=== PATIENT | female | born 1970 | race Caucasian/White ===

== ENCOUNTER → 2018-05-20 | Outpatient (REF) | payer OTHER ==
[~2018-05-20] MED LIST: AMOX500T10 PO; CALC500T6 PO; CLAR-1 PO; DOCU240C4 PO; IBUP-56 PO; IBUP400T13 PO; IBUP800T37 PO; MULT-865 PO; PANT40TA65 PO; PER PO; PROM-110 PO
== END ==
LOC: ZZSTITCHES 11:26
PROVIDERS: ATTEND Physician Assistant
DX: B96.81 Helicobacter pylori [H. pylori] as the cause of diseases classified elsewhere (principal); R51 Headache; R11.10 Vomiting, unspecified
CPT/HCPCS: 82040; 82247; 82310; 82374; 82435; 82565; 82947; 84075; 84132; 84155; 84295; 84450; 84460; 84520

== ENCOUNTER 2018-05-28 11:50 | Emergency (ER) | payer OTHER ==
--- NOTE | 2018-05-28 11:56 | ER Report ---
History and Physical Time Seen By MD: 11:57 HPI/ROS CHIEF COMPLAINT: Abdominal pain HISTORY OF PRESENT ILLNESS: This is a 47-year-old female who presents to the emergency department for abdominal pain, nausea and vomiting. Patient states that she developed severe abdominal pain approximately 5 weeks ago, was diagnosed with H. pylori, started on an antibiotic regiment, finished the antibiotics approximately one week ago. Was scheduled to have and upper and lower GI with Dr. Gregory today however there was a mixup in the schedule and she is scheduled for tomorrow, the patient did fast last night. Arrives today with increased epigastric discomfort increased nausea, continues to have diarrhea. Patient appears to be very uncomfortable. No fevers. No chest pain but does have epigastric discomfort. Patient states she is exhausted, she has been dealing with nausea and vomiting and diarrhea for approximately 3 weeks no significant oral intake over the last 3 weeks as well. REVIEW OF SYSTEMS: Constitutional: No fever, no chills. Eyes: No discharge. ENT: No sore throat. Cardiovascular: No chest pain, no palpitations. Respiratory: No cough, no shortness of breath. Gastrointestinal: As above. Genitourinary: No hematuria. Musculoskeletal: No back pain. Skin: No rashes. Neurological: No headache. Allergies: Coded Allergies: morphine (Verified Allergy, Unknown, SWELLING AND ITCHING, 05/28/18) metronidazole (Verified Adverse Reaction, Intermediate, 05/28/18) Home Meds Active Scripts Pantoprazole Sodium (PANTOPRAZOLE SODIUM) 40 Mg Tablet.dr, 1 TAB PO BIDAC, #60 TAB 3 Refills Take 1 tablet, on an empty stomach, twice each day, and wait 30 minutes before eating. Prov:ZEESHAN GONSALES MD 05/27/18 Promethazine Hcl (PROMETHAZINE HCL) 25 Mg Tablet, 1 TAB PO Q8H PRN for NAUSEA/VOMITING, #10 TAB 0 Refills Prov:ZEESHAN GONSALES MD 05/27/18 Clarithromycin (CLARITHROMYCIN) 500 Mg Tablet, 1 TAB PO BID, #14 TAB 0 Refills Prov:ZEESHAN GONSALES MD 05/17/18 Amoxicillin 500 Mg Tab (AMOXICILLIN 500 MG TAB) 500 Mg Tablet, 2 TAB PO Q12H, #30 TAB 0 Refills Prov:ZEESHAN GONSALES MD 05/17/18 Reported Medications Ibuprofen (IBUPROFEN) 400 Mg Tablet, 1 TAB PO Q6H PRN for PAIN, TAB 07/30/17 Past Medical/Surgical History The patient has a past medical and surgical history of H. 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 Reviewed Nurses Notes: Yes Smoking Status: Never Smoker Constitutional Vital Sign - Last 24 Hours 05/28/18 05/28/18 05/28/18 05/28/18 11:56 11:56 12:00 12:20 Temp 97.5 Pulse 96 93 Resp 22 B/P (MAP) 132/89 132/89 (103) 118/85 (96) Pulse Ox 97 96 O2 Delivery Room Air 05/28/18 05/28/18 05/28/18 05/28/18 12:30 12:50 13:00 13:20 Pulse 83 75 B/P (MAP) 105/75 (85) 112/71 (85) Pulse Ox 96 96 05/28/18 05/28/18 05/28/18 05/28/18 13:30 13:35 14:00 14:05 Pulse 79 66 B/P (MAP) 92/61 (71) 103/72 (82) Pulse Ox 95 96 05/28/18 05/28/18 14:30 14:35 Pulse 64 B/P (MAP) 108/73 (85) Pulse Ox 96 Physical Exam General Appearance: The patient is alert, has no immediate need for airway protection and no signs of toxicity. Eyes: Pupils equal and round no pallor or injection. ENT, Mouth: Mucous membranes are moist. Respiratory: There are no retractions, lungs are clear to auscultation. Cardiovascular: Regular rate and rhythm, no murmurs, clicks or rubs. Gastrointestinal: Abdomen is soft , with tenderness to the epigastrium otherwise unremarkable. Hypoactive bowel sounds with a few tinkles. No masses, no abdominal bruits. Neurological: Alert and oriented 4. Moving all extremities. Following all commands. No focal neuro deficits. Skin: Warm and dry, no rashes. Musculoskeletal: Neck is supple non tender. Extremities are nontender, nonswollen and have full range of motion. DIFFERENTIAL DIAGNOSIS: After history and physical exam differential diagnosis was considered for abdominal pain including but not limited to appendicitis, H. pylori, cholecystitis, gastritis and urinary tract infection. Medical Decision Making Data Points Result Diagram: 05/28/18 1221 05/28/18 1221 Laboratory Hematology Test 05/28/18 12:21 05/28/18 14:56 Red Blood Count 5.63 M/uL (4.17-5.56) Mean Corpuscular Volume 84.3 fL (80.0-96.0) Mean Corpuscular Hemoglobin 29.7 pg (26.0-33.0) Mean Corpuscular Hemoglobin Concent 35.2 g/dL (32.0-36.0) Red Cell Distribution Width 12.5 % (11.5-14.5) Mean Platelet Volume 7.0 fL (7.2-11.1) Neutrophils (%) (Auto) 78.0 % (39.4-72.5) Lymphocytes (%) (Auto) 11.9 % (17.6-49.6) Monocytes (%) (Auto) 8.5 % (4.1-12.4) Eosinophils (%) (Auto) 1.0 % (0.4-6.7) Basophils (%) (Auto) 0.6 % (0.3-1.4) Nucleated RBC Relative Count (auto) 0.0 /100WBC Neutrophils # (Auto) 7.4 K/uL (2.0-7.4) Lymphocytes # (Auto) 1.1 K/uL (1.3-3.6) Monocytes # (Auto) 0.8 K/uL (0.3-1.0) Eosinophils # (Auto) 0.1 K/uL (0.0-0.5) Basophils # (Auto) 0.1 K/uL (0.0-0.1) Nucleated RBC Absolute Count (auto) 0.00 K/uL Sodium Level 133 mmol/L (137-145) Potassium Level 3.8 mmol/L (3.5-5.0) Chloride Level 96 mmol/L (98-107) Carbon Dioxide Level 23 mmol/L (22-31) Blood Urea Nitrogen 12 mg/dl (7-18) Creatinine 0.80 mg/dl (0.52-1.04) Glomerular Filtration Rate Calc > 60.0 Random Glucose 173 mg/dl (75-110) Calcium Level 9.5 mg/dl (8.4-10.2) Total Bilirubin 1.3 mg/dl (0.2-1.3) Aspartate Amino Transf (AST/SGOT) 35 U/L (0-35) Alanine Aminotransferase (ALT/SGPT) 38 U/L (0-56) Alkaline Phosphatase 140 U/L (0-126) Total Protein 7.6 g/dl (6.3-8.2) Albumin 4.8 g/dl (3.5-5.0) Lipase 166 U/L (23-300) Urine Color Yellow Urine Clarity Clear Urine pH 7.0 pH (4.8-9.5) Urine Specific Archer 1.010 Urine Protein Negative mg/dL (NEGATIVE) Urine Glucose (UA) Negative mg/dL (NEGATIVE) Urine Ketones Negative mg/dL (NEGATIVE) Urine Blood Negative (NEGATIVE) Urine Nitrite Negative (NEGATIVE) Urine Bilirubin Negative (NEGATIVE) Urine Urobilinogen Negative mg/dL (0.2-1.9) Urine Leukocyte Esterase Negative (NEGATIVE) Urine RBC None /HPF (0-2/HPF) Urine WBC 2 /HPF (0-5/HPF) Urine Squamous Epithelial Cells None /LPF (</=FEW) Urine Bacteria Negative /HPF (NONE-FEW) Urine Mucus None /HPF (NONE-FEW) Chemistry Test 05/28/18 12:21 05/28/18 14:56 White Blood Count 9.5 k/uL (4.5-11.0) Red Blood Count 5.63 M/uL (4.17-5.56) Hemoglobin 16.7 g/dL (12.0-16.0) Hematocrit 47.4 % (34.0-47.0) Mean Corpuscular Volume 84.3 fL (80.0-96.0) Mean Corpuscular Hemoglobin 29.7 pg (26.0-33.0) Mean Corpuscular Hemoglobin Concent 35.2 g/dL (32.0-36.0) Red Cell Distribution Width 12.5 % (11.5-14.5) Platelet Count 275 K/uL (150-450) Mean Platelet Volume 7.0 fL (7.2-11.1) Neutrophils (%) (Auto) 78.0 % (39.4-72.5) Lymphocytes (%) (Auto) 11.9 % (17.6-49.6) Monocytes (%) (Auto) 8.5 % (4.1-12.4) Eosinophils (%) (Auto) 1.0 % (0.4-6.7) Basophils (%) (Auto) 0.6 % (0.3-1.4) Nucleated RBC Relative Count (auto) 0.0 /100WBC Neutrophils # (Auto) 7.4 K/uL (2.0-7.4) Lymphocytes # (Auto) 1.1 K/uL (1.3-3.6) Monocytes # (Auto) 0.8 K/uL (0.3-1.0) Eosinophils # (Auto) 0.1 K/uL (0.0-0.5) Basophils # (Auto) 0.1 K/uL (0.0-0.1) Nucleated RBC Absolute Count (auto) 0.00 K/uL Glomerular Filtration Rate Calc > 60.0 Calcium Level 9.5 mg/dl (8.4-10.2) Total Bilirubin 1.3 mg/dl (0.2-1.3) Aspartate Amino Transf (AST/SGOT) 35 U/L (0-35) Alanine Aminotransferase (ALT/SGPT) 38 U/L (0-56) Alkaline Phosphatase 140 U/L (0-126) Total Protein 7.6 g/dl (6.3-8.2) Albumin 4.8 g/dl (3.5-5.0) Lipase 166 U/L (23-300) Urine Color Yellow Urine Clarity Clear Urine pH 7.0 pH (4.8-9.5) Urine Specific Archer 1.010 Urine Protein Negative mg/dL (NEGATIVE) Urine Glucose (UA) Negative mg/dL (NEGATIVE) Urine Ketones Negative mg/dL (NEGATIVE) Urine Blood Negative (NEGATIVE) Urine Nitrite Negative (NEGATIVE) Urine Bilirubin Negative (NEGATIVE) Urine Urobilinogen Negative mg/dL (0.2-1.9) Urine Leukocyte Esterase Negative (NEGATIVE) Urine RBC None /HPF (0-2/HPF) Urine WBC 2 /HPF (0-5/HPF) Urine Squamous Epithelial Cells None /LPF (</=FEW) Urine Bacteria Negative /HPF (NONE-FEW) Urine Mucus None /HPF (NONE-FEW) Urinalysis Test 05/28/18 14:56 Urine Color Yellow Urine Clarity Clear Urine pH 7.0 pH (4.8-9.5) Urine Specific Archer 1.010 Urine Protein Negative mg/dL (NEGATIVE) Urine Glucose (UA) Negative mg/dL (NEGATIVE) Urine Ketones Negative mg/dL (NEGATIVE) Urine Blood Negative (NEGATIVE) Urine Nitrite Negative (NEGATIVE) Urine Bilirubin Negative (NEGATIVE) Urine Urobilinogen Negative mg/dL (0.2-1.9) Urine Leukocyte Esterase Negative (NEGATIVE) Urine RBC None /HPF (0-2/HPF) Urine WBC 2 /HPF (0-5/HPF) Urine Squamous Epithelial Cells None /LPF (</=FEW) Urine Bacteria Negative /HPF (NONE-FEW) Urine Mucus None /HPF (NONE-FEW) ED Course/Re-evaluation Clinical Indication for ER IV: Hydration, IV Access ED Course The patient was admitted to room. A history of physical obtained. Fresh diagnoses were considered. An IV was started. 1 L normal saline bolus was given 2. 4 mg IV Zofran 2. 1 GI cocktail. A CBC, CMP and lipase were obtained. CBC showing hemoconcentration which is likely from the continuation of vomiting and diarrhea. Blood sugar 173. Lipase normal. Patient is resting comfortably now. Unable to obtain stool samples for C. difficile. Patient was sent home with a prescription for stool collection results to Dr. Gregory she will be following up with Dr. Gregory for the upper and lower GI studies. The patient had no other questions or concerns at this time and was discharged home. Decision to Disposition Date: May 28, 2018 Decision to Disposition Time: 14:52 Depart Departure Latest Vital Signs Vital Signs Date Time Temp Pulse Resp B/P (MAP) Pulse Ox O2 Delivery O2 Flow Rate FiO2 05/28/18 14:35 64 96 05/28/18 14:30 108/73 (85) 05/28/18 11:56 97.5 22 Room Air Impression: Primary Impression: Nausea and vomiting Additional Impressions: Epigastric abdominal pain Diarrhea Condition: Improved Disposition: HOME OR SELF-CARE Referrals: JAIMIE MENDOZA MD (PCP) Patient Instructions: Abdominal Pain (ED), Acute Diarrhea (ED), Acute Nausea and Vomiting (ED) Additional Instructions: Continue with the recommendations for procedure prep re: upper and lower endoscopy tomorrow. If you can have fluids today, try sips to start then progress. Take the medications as prescribed. Return to the ED for any other concerns or worsening symptoms. Problem Qualifiers Primary Impression: Nausea and vomiting Vomiting type: unspecified Vomiting Intractability: non-intractable Qualified Codes: R11.2 - Nausea with vomiting, unspecified Additional Impressions: Diarrhea Diarrhea type: unspecified type Qualified Codes: R19.7 - Diarrhea, unspecified DARREN GILLIAM [employer] May 28, 2018 11:56
[2018-05-28] MEDS ORDERED: NS(*) 0.9% 1000 ML BAG 1,000 ML IV ONE ×2 (12:13→13:35)
[2018-05-28] MEDS ORDERED: MAG HYD/AL HYD/SIMETH 30ML UDC PO ONE (12:15)
[2018-05-28] MEDS ORDERED: LIDOCAINE 2% VISC SLN 15ML UDC PO ONE (12:15)
[2018-05-28] MEDS ORDERED: ATRO/SCOPOL/HYOSCY/PB 5 ML ELX PO ONE (12:15)
[2018-05-28] MEDS ORDERED: ONDANSETRON 4 MG/2 ML VIAL IVP ONE ×2 (12:15→14:45)
[2018-05-28 12:29] LABS: PLATELET COUNT, AUTOMATED 275 K/uL (150-450)
[2018-05-28 14:30] VITALS: BP 108/73
[2018-05-29] MEDS ORDERED: GOLYTE PO (17:24)
[2018-05-29] MEDS ORDERED: ONDA4TAB PO (18:27)
== END 2018-05-28 15:18 | disposition home or self-care (01) ==
LOC: ER 12:00
DX: R10.13 Epigastric pain (principal); R11.2 Nausea with vomiting, unspecified; R19.7 Diarrhea, unspecified
CPT/HCPCS: 81001; 83690; 85025; 96361; 96374; 96376; 99284; J2405; J7030; 82040; 82247; 82310; 82374; 82435; 82565; 82947; 84075; 84132; 84155; 84295; 84450; 84460; 84520

== ENCOUNTER 2018-05-29 00:55 | Outpatient (RCR) | payer OTHER ==
[2018-05-29] MEDS ORDERED: BARIUM SULFATE 340 GM POWD ONE (08:59)
[2018-05-29] MEDS ORDERED: BARIUM SULFATE 176 GM BTL PO ONE (08:59)
[2018-05-29] MEDS ORDERED: GOLYTE PO (17:24)
[2018-05-29] MEDS ORDERED: ONDA4TAB PO (18:27)
[2018-05-31] MEDS ORDERED: ONDA4TAB PO (08:59)
[2018-06-07] MEDS ORDERED: DICY20TA70 PO (14:46)
== END 2018-05-29 18:00 | disposition home or self-care (01) ==
LOC: RAD 00:55 → EDSTATUS 13:27 → RAD 18:00
PROVIDERS: ATTEND Surgery
DX: Z02.9 Encounter for administrative examinations, unspecified (principal)

== ENCOUNTER 2018-05-30 00:49 | Day surgery (SDC) | payer OTHER ==
[2018-05-30] VITALS (8 sets, daily range): BP systolic 104–132; BP diastolic 62–92
[~2018-05-30] VITALS: Ht 180.3 cm; Wt 72.1 kg
[~2018-05-30 00:49] MED LIST changes: +GOLYTE PO; +ONDA4TAB PO
[2018-05-30] MEDS ORDERED: LIDOCAINE MPF 1% 5 ML VIAL ONE (10:50)
[2018-05-30] MEDS ORDERED: PROPOFOL EMUL(*) 10MG/ML 20 ML 60 ML ONE (10:50)
[2018-05-30] MEDS ORDERED: LIDOCAINE/SOD BICARB 8.4% SYR ID ONE (11:00)
[2018-05-30] MEDS ORDERED: NORMOSOL R SOLN(*) 1000 ML BAG 1,000 ML IV PRN (11:00)
[2018-05-30] MEDS ORDERED: NORMOSOL R SOLN(*) 1000 ML BAG 1,000 ML IV ONE (11:00)
[2018-05-30] MEDS ORDERED: GLYCOPYRROLATE 0.2MG/ML 1 ML INJ IVP ONE (11:50)
[2018-05-30] MEDS ORDERED: PROPOFOL EMUL(*) 10MG/ML 20 ML 20 ML ONE (13:20)
--- NOTE | 2018-05-30 13:47 | Short(Outpt) Discharge Summary ---
Discharge Summary Reason for Hosp/Final Diag: (1) Diarrhea Status: Chronic Hospital Course & Plan: EGD with biopsies and colonoscopy with biopsies completed without any problems. (2) Epigastric abdominal pain Status: Chronic (3) Nausea and vomiting Status: Chronic (4) H. pylori infection Status: Chronic Departure Discharge to: Home, Self Care Discharge Instructions Home Meds Active Scripts Peg/Electrolytes (GOLYTELY SOLUTION) 4,000 Ml Soln, 1 GAL PO ONCE, #1 GAL 0 Refills Prov:ZEESHAN GONSALES MD 05/29/18 Pantoprazole Sodium (PANTOPRAZOLE SODIUM) 40 Mg Tablet.dr, 1 TAB PO BIDAC, #60 TAB 3 Refills Take 1 tablet, on an empty stomach, twice each day, and wait 30 minutes before eating. Prov:ZEESHAN GONSALES MD 05/27/18 Reported Medications Ondansetron (ZOFRAN ODT) 4 Mg Tab.rapdis, 4 MG PO Q12H PRN for NAUSEA, TAB.MOOSE 05/29/18 Discontinued Reported Medications Ibuprofen (IBUPROFEN) 400 Mg Tablet, 1 TAB PO Q6H PRN for PAIN, TAB 07/30/17 Discontinued Scripts Promethazine Hcl (PROMETHAZINE HCL) 25 Mg Tablet, 1 TAB PO Q8H PRN for NAUSEA/VOMITING, #10 TAB 0 Refills Prov:ZEESHAN GONSALES MD 05/27/18 Clarithromycin (CLARITHROMYCIN) 500 Mg Tablet, 1 TAB PO BID, #14 TAB 0 Refills Prov:ZEESHAN GONSALES MD 05/17/18 Amoxicillin 500 Mg Tab (AMOXICILLIN 500 MG TAB) 500 Mg Tablet, 2 TAB PO Q12H, #30 TAB 0 Refills Prov:ZEESHAN GONSALES MD 05/17/18 Follow up Referrals: General Surgery - 05/31/18 @ Surgery, General with ZEESHAN GONSALES MD You have a follow up appointment scheduled with Dr. Gonsales on 05/31/18, at 2:00pm. Diet: Regular Activity: As Tolerated Special Instructions: Your upper endoscopy and colonoscopy were both completed without problems. There was still quite a bit of barium throughout your colon but I did get a good look at everything to be able to determine that there's no inflammation, cancer, ulcers, signs of ulcerative colitis, or Crohn's disease. I took biopsies from your stomach, duodenum, terminal ileum, and colon and one of the biopsies will look for continued H. pylori infection. Continue taking the pantoprazole, 40mg tablets twice each day on an empty stomach and wait 30 minutes before eating and grind 1 carafate (sucralfate) tablet in some water and drink this four times each day. You can also take maalox, mylanta, tums, or other antacids of your choice if it helps your pain and/or nausea. Get the head CT and abdomen/pelvis CT scheduled for tomorrow morning and I'll see you back in my office tomorrow afternoon at 2:00pm to go over all results with you. The only results I won't have back by then are the biopsy results. We'll also order stool studies at that time as well and we'll see how your symptoms are doing on pantoprazole and liquid carafate and what changes we need to make to help you feel better. Problem Qualifiers (1) Diarrhea: Diarrhea type: unspecified type Qualified Codes: R19.7 - Diarrhea, unspecified (2) Nausea and vomiting: Vomiting type: unspecified Vomiting Intractability: unspecified Qualified Codes: R11.2 - Nausea with vomiting, unspecified ZEESHAN GONSALES MD May 30, 2018 13:47
[2018-05-31] MEDS ORDERED: ONDA4TAB PO (08:59)
== END 2018-05-30 14:58 | disposition home or self-care (01) ==
LOC: OR 00:49
PROVIDERS: ATTEND Surgery
DX: R19.7 Diarrhea, unspecified (principal); R10.9 Unspecified abdominal pain; R10.13 Epigastric pain; R11.2 Nausea with vomiting, unspecified
CPT/HCPCS: 00811; 36415; 43239; 45380; 83516; 83690; 85651; 86140; 87077; 88305; J2001; J2704; J3490

== ENCOUNTER 2018-06-06 01:29 | Outpatient (RCR) | payer OTHER ==
[2018-06-07] MEDS ORDERED: DICY20TA70 PO (14:46)
== END 2018-06-06 18:00 | disposition home or self-care (01) ==
LOC: CT 01:29 → EDSTATUS 13:47 → CT 18:00
PROVIDERS: ATTEND Surgery
DX: Z02.9 Encounter for administrative examinations, unspecified (principal)

== ENCOUNTER → 2018-06-07 | Outpatient (REF) | payer OTHER ==
[~2018-06-07] MED LIST changes: +DICY20TA70 PO; +OXYC-823 PO; +PROC10TA4; +VANC125C3 PO; +VANC250C3 PO
== END ==
LOC: ZZSENDIN 17:38
PROVIDERS: ATTEND Surgery
DX: Z02.9 Encounter for administrative examinations, unspecified (principal)

== ENCOUNTER 2018-06-13 20:52 | Inpatient (IN) | payer OTHER ==
[~2018-06-13] VITALS: Ht 180.3 cm; Wt 74.4 kg
[~2018-06-13 20:52] MED LIST changes: -OXYC-823 PO; -PROC10TA4; -VANC125C3 PO; -VANC250C3 PO
--- NOTE | 2018-06-13 20:54 | ER Report ---
History and Physical Time Seen By MD: 20:54 HPI/ROS CHIEF COMPLAINT: Nausea, vomiting, diffuse abdominal pain, dehydration, failure to thrive HISTORY OF PRESENT ILLNESS: Patient is a 47-year-old female here with complaints of diffuse abdominal pain, nausea, vomiting in the setting of metastatic melanoma. Patient reportedly was admitted to [facility] on Sunday for worsening abdominal pain and was diagnosed with melanoma at that time of the spleen, liver and lung. Patient was discharged yesterday afternoon and was doing well until this afternoon when she was unable to keep down her pain medications, vancomycin which she has been taking for C. difficile, Compazine. Patient has had recurrent vomiting, abdominal pain which seems to be worsening. She is opiate avni until this admission and likely has some component of constipation. She does have a lidocaine patch on her epigastric region for topical relief of pain. Patient is afebrile, hemodynamically stable at time of evaluation. Patient is alert and oriented, in moderate distress secondary to pain. Last full meal was at lunch time. REVIEW OF SYSTEMS: Constitutional: No fever, no chills. Eyes: No discharge. ENT: No sore throat. Cardiovascular: No chest pain, no palpitations. Respiratory: No cough, no shortness of breath. Gastrointestinal: + diffuse abdominal pain, worse in the epigastric distribution, + nausea and vomiting. Genitourinary: No hematuria. Musculoskeletal: No back pain. Skin: No rashes. Neurological: No headache. Allergies: Coded Allergies: morphine (Verified Allergy, Unknown, SWELLING AND ITCHING, 06/13/18) metronidazole (Verified Adverse Reaction, Intermediate, 06/13/18) Home Meds Active Scripts Dicyclomine Hcl (DICYCLOMINE HCL) 20 Mg Tablet, 1 TAB PO QID, #60 TAB 0 Refills Prov:ZEESHAN GONSALES MD 06/07/18 Ondansetron (ZOFRAN ODT) 4 Mg Tab.rapdis, 1 TAB PO TID PRN for NAUSEA, #20 TAB.MOOSE 3 Refills Prov:ZEESHAN GONSALES MD 05/31/18 Reported Medications Prochlorperazine Maleate (Compazine) 10 Mg Tablet 06/13/18 Vancomycin Hcl (VANCOMYCIN HCL) 250 Mg Capsule, 250 MG PO, CAPSULE 06/13/18 Oxycodone Hcl (OXYCONTIN) 10 Mg Tab.er.12h, 5 MG PO Q4-6H, TAB 06/13/18 Discontinued Scripts Pantoprazole Sodium (PANTOPRAZOLE SODIUM) 40 Mg Tablet.dr, 1 TAB PO BIDAC, #60 TAB 3 Refills Take 1 tablet, on an empty stomach, twice each day, and wait 30 minutes before eating. Prov:ZEESHAN GONSALES MD 05/27/18 Hx Smoking: Yes Smoking Status: Former Smoker, Light Tobacco Smoker Hx Substance Use Disorder: No Hx Alcohol Use: No Constitutional Vital Sign - Last 24 Hours 06/13/18 06/13/18 06/13/18 06/13/18 20:56 20:57 21:00 21:07 Temp 98.8 Pulse 76 75 Resp 16 B/P (MAP) 120/69 (86) 120/69 126/85 (99) Pulse Ox 95 95 O2 Delivery Room Air 06/13/18 06/13/18 06/13/18 06/13/18 21:22 21:30 21:37 21:42 Pulse 71 71 70 B/P (MAP) 130/91 (104) Pulse Ox 94 91 93 06/13/18 06/13/18 06/13/18 06/13/18 21:52 21:57 22:00 22:12 Pulse 65 70 B/P (MAP) 125/78 (94) Pulse Ox 97 97 O2 Flow Rate 2.0 Physical Exam General Appearance: The patient is alert, has no immediate need for airway protection and no signs of toxicity. Moderate distress secondary to pain Eyes: Pupils equal and round no pallor or injection. ENT, Mouth: Mucous membranes are dry Respiratory: There are no retractions, lungs are clear to auscultation. Cardiovascular: Regular rate and rhythm. Gastrointestinal: Abdomen is soft and diffusely tender on palpation, no masses, bowel sounds normal. Neurological: No focal neurological deficits on exam Skin: Warm and dry, no rashes. Musculoskeletal: Neck is supple non tender. Extremities are nontender, nonswollen and have full range of motion. DIFFERENTIAL DIAGNOSIS: After history and physical exam differential diagnosis was considered for abdominal pain including but not limited to bowel obstruction, malignancy, gastritis and urinary tract infection, constipation, peptic ulcer disease. Medical Decision Making Data Points Result Diagram: 06/13/18212406/13/182124 Laboratory Hematology Test 06/13/18 21:25 Red Blood Count 5.38 M/uL (4.17-5.56) Mean Corpuscular Volume 83.2 fL (80.0-96.0) Mean Corpuscular Hemoglobin 29.6 pg (26.0-33.0) Mean Corpuscular Hemoglobin Concent 35.6 g/dL (32.0-36.0) Red Cell Distribution Width 12.8 % (11.5-14.5) Mean Platelet Volume 7.0 fL (7.2-11.1) Neutrophils (%) (Auto) 80.6 % (39.4-72.5) Lymphocytes (%) (Auto) 8.6 % (17.6-49.6) Monocytes (%) (Auto) 9.5 % (4.1-12.4) Eosinophils (%) (Auto) 0.7 % (0.4-6.7) Basophils (%) (Auto) 0.6 % (0.3-1.4) Nucleated RBC Relative Count (auto) 0.0 /100WBC Neutrophils # (Auto) 6.9 K/uL (2.0-7.4) Lymphocytes # (Auto) 0.7 K/uL (1.3-3.6) Monocytes # (Auto) 0.8 K/uL (0.3-1.0) Eosinophils # (Auto) 0.1 K/uL (0.0-0.5) Basophils # (Auto) 0.1 K/uL (0.0-0.1) Nucleated RBC Absolute Count (auto) 0.00 K/uL Prothrombin Time 12.8 seconds (12.0-14.4) Prothromb Time International Ratio 0.97 Activated Partial Thromboplast Time 28 seconds (23-35) Sodium Level 132 mmol/L (137-145) Potassium Level 4.2 mmol/L (3.5-5.0) Chloride Level 91 mmol/L (98-107) Carbon Dioxide Level 31 mmol/L (22-31) Blood Urea Nitrogen 7 mg/dl (7-18) Creatinine 0.80 mg/dl (0.52-1.04) Glomerular Filtration Rate Calc > 60.0 Random Glucose 122 mg/dl (75-110) Lactate 1.9 mmol/L (0.7-2.1) Calcium Level 9.6 mg/dl (8.4-10.2) Total Bilirubin 1.4 mg/dl (0.2-1.3) Aspartate Amino Transf (AST/SGOT) 85 U/L (0-35) Alanine Aminotransferase (ALT/SGPT) 96 U/L (0-56) Alkaline Phosphatase 238 U/L (0-126) C-Reactive Protein 1.3 mg/dl (<1.0) Total Protein 7.2 g/dl (6.3-8.2) Albumin 4.2 g/dl (3.5-5.0) Lipase 55 U/L (23-300) Human Chorionic Gonadotropin, Qual Negative (NEGATIVE) Chemistry Test 06/13/18 21:25 White Blood Count 8.6 k/uL (4.5-11.0) Red Blood Count 5.38 M/uL (4.17-5.56) Hemoglobin 15.9 g/dL (12.0-16.0) Hematocrit 44.7 % (34.0-47.0) Mean Corpuscular Volume 83.2 fL (80.0-96.0) Mean Corpuscular Hemoglobin 29.6 pg (26.0-33.0) Mean Corpuscular Hemoglobin Concent 35.6 g/dL (32.0-36.0) Red Cell Distribution Width 12.8 % (11.5-14.5) Platelet Count 232 K/uL (150-450) Mean Platelet Volume 7.0 fL (7.2-11.1) Neutrophils (%) (Auto) 80.6 % (39.4-72.5) Lymphocytes (%) (Auto) 8.6 % (17.6-49.6) Monocytes (%) (Auto) 9.5 % (4.1-12.4) Eosinophils (%) (Auto) 0.7 % (0.4-6.7) Basophils (%) (Auto) 0.6 % (0.3-1.4) Nucleated RBC Relative Count (auto) 0.0 /100WBC Neutrophils # (Auto) 6.9 K/uL (2.0-7.4) Lymphocytes # (Auto) 0.7 K/uL (1.3-3.6) Monocytes # (Auto) 0.8 K/uL (0.3-1.0) Eosinophils # (Auto) 0.1 K/uL (0.0-0.5) Basophils # (Auto) 0.1 K/uL (0.0-0.1) Nucleated RBC Absolute Count (auto) 0.00 K/uL Prothrombin Time 12.8 seconds (12.0-14.4) Prothromb Time International Ratio 0.97 Activated Partial Thromboplast Time 28 seconds (23-35) Glomerular Filtration Rate Calc > 60.0 Lactate 1.9 mmol/L (0.7-2.1) Calcium Level 9.6 mg/dl (8.4-10.2) Total Bilirubin 1.4 mg/dl (0.2-1.3) Aspartate Amino Transf (AST/SGOT) 85 U/L (0-35) Alanine Aminotransferase (ALT/SGPT) 96 U/L (0-56) Alkaline Phosphatase 238 U/L (0-126) C-Reactive Protein 1.3 mg/dl (<1.0) Total Protein 7.2 g/dl (6.3-8.2) Albumin 4.2 g/dl (3.5-5.0) Lipase 55 U/L (23-300) Human Chorionic Gonadotropin, Qual Negative (NEGATIVE) Coagulation Test 06/13/18 21:25 Prothrombin Time 12.8 seconds Prothromb Time International Ratio 0.97 Activated Partial Thromboplast Time 28 seconds ER Point of Care Test Results ER Point of Care Test Results 12 lead EKG: Normal sinus rhythm, ventricular rate 69, QTc interval 447, no ischemic changes or ST abnormalities Rhythm: normal sinus rhythm [place]: normal QRS: normal ST segments: normal EKG/Imaging Monitor Interpretation: Normal Sinus Rhythm Imaging X-ray showed no acute obstructive pattern. Please see official radiology report for further details. ED Course/Re-evaluation Clinical Indication for ER IV: Hydration, IV Access ED Course Patient is a 47-year-old female here with complaints of abdominal pain, nausea, vomiting, failure to thrive in the setting of metastatic melanoma to the spleen, liver, lungs diagnosed on her last admission to [facility] from what she was discharged yesterday afternoon. Patient reports worsening abdominal pain and unable to tolerate oral intake starting this afternoon with intractable nausea, vomiting, dehydration. Patient reports being unable to hold down her home pain medications , vancomycin which she is taking for her C. difficile. Patient reportedly is on day 6 of 10 of vancomycin therapy for her Clostridium difficile treatment. Patient is afebrile time of evaluation, hemodynamically stable. Patient was given a liter bolus of fluids, Dilaudid, Zofran for symptom management. KUB was completed to evaluate for bowel extraction. EKG showed QT interval of 447, no ischemic changes are present. Patient was noted to have a transaminitis with an elevated alkaline phosphatase. I discussed the patient with Dr. Anat Gabriel who is the on-call hospitalist who accepted the patient to his service. Patient was stable at time of admission. Decision to Disposition Date: Jun 13, 2018 Decision to Disposition Time: 22:11 Depart Departure Latest Vital Signs Vital Signs Date Time Temp Pulse Resp B/P (MAP) Pulse Ox O2 Delivery O2 Flow Rate FiO2 06/13/18 22:12 70 97 06/13/18 22:00 125/78 (94) 06/13/18 21:52 2.0 06/13/18 20:57 98.8 16 Room Air Impression: Primary Impression: Nausea and vomiting Additional Impressions: Epigastric abdominal pain Dehydration Condition: Improved Disposition: HOME OR SELF-CARE Referrals: JAIMIE MENDOZA MD (PCP) Problem Qualifiers MERCEDES MORRIS DO Jun 13, 2018 20:54
[2018-06-13] MEDS ORDERED: OXYC-823 PO (21:00)
[2018-06-13] MEDS ORDERED: VANC250C3 PO (21:01)
[2018-06-13] MEDS ORDERED: PROC10TA4 (21:02)
[2018-06-13] MEDS ORDERED: NS(*) 0.9% 1000 ML BAG 1,000 ML IV ONE (21:13)
[2018-06-13] MEDS ORDERED: ONDANSETRON 4 MG/2 ML VIAL IVP ONE (21:15)
[2018-06-13] MEDS ORDERED: HYDROMORPHONE HCL 1 MG/ML SYRINGE IVP ONE (21:15)
[2018-06-13 21:34] LABS: PLATELET COUNT, AUTOMATED 232 K/uL (150-450)
[2018-06-13 21:43] LABS: INR 0.97
--- NOTE | 2018-06-13 21:47 | EKG ---
FACILITY: [facility] - [place], [place] PATIENT NAME: GONZALO CABELLO : [id number] MR: [id number] V: [id number] EXAM DATE: ORDERING PHYSICIAN: MERCEDES MORRIS TECHNOLOGIST: HOWIE Barraza Reason : Blood Pressure : / mmHG Vent. Rate : 069 BPM Atrial Rate : 069 BPM P-R Int : 148 ms QRS Dur : 086 ms QT Int : 418 ms P-R-T Axes : 061 090 069 degrees QTc Int : 447 ms Normal sinus rhythm Rightward axis Borderline ECG No previous ECGs available Confirmed by Toby Wilson [id number] on 06/13/2018 11:56:29 PM Referred By: Confirmed By:Toby Gabriel
[2018-06-13 22:25] VITALS: BP 110/78
--- NOTE | 2018-06-13 23:12 | RADIOLOGY IMAGING REPORT ---
FACILITY: [facility] - [place] PATIENT NAME: Anny Yeboah : 1970 MR: [id number] V: [id number] EXAM DATE: ORDERING PHYSICIAN: MERCEDES MORRIS TECHNOLOGIST: Location: [facility] - [place] Patient: Anny Yeboah : 1970 Visit/Account:[id number] Date of Sevice: 06/13/2018 Abdomen: Indication: Abdominal distention and nausea. Technique: 2 supine views of the abdomen were obtained. Comparison: None. Findings: There is a moderate amount of stool in the colon. There are no signs of obstruction or foca l dilatation. No suspicious calcifications are identified. There are postoperative changes in the low er lumbar spine. No acute skeletal deformity is identified. IMPRESSION: There is a moderate amount of stool in the colon. There is no evidence of obstruction or focal dilatation. Report Dictated By: Marshall Miller MD at 06/13/2018 11:05 PM Report E-Signed By: Marshall Miller MD at 06/13/2018 11:07 PM WSN:[id number]
[2018-06-13] MEDS ORDERED: FLUSH 10 ML SYR IVP PRN (23:55)
[2018-06-13] MEDS ORDERED: INFLUENZA VIRUS VAC 0.5 ML SYR IM ONLY ONE (23:55)
--- NOTE | 2018-06-14 00:16 | History & Physical ---
History of Present Illness Chief Complaint nausea/vomiting, abdominal pain History of Present Illness 47F recently diagnosed with metastatic melanoma presented with one day Hx intractable n/v. DIscharged form [facility] after pain and n/v led her to seek help and was diagnosed with metastatic melanoma with involvement of the liver and spleen. Was tolerating PO prior to discharge and was doing ok until noon or so today, began vomiting and unable to stop. She also had cdiff diagnossed while inpatient and has completed 6 days vancomycin for it. History Problems: (1) Epigastric abdominal pain Status: Chronic (2) Nausea and vomiting Status: Chronic Home Meds Active Scripts Ondansetron (ZOFRAN ODT) 4 Mg Tab.rapdis, 1 TAB PO TID PRN for NAUSEA, #20 TAB.MOOSE 3 Refills Prov:ZEESHAN GONSALES MD 05/31/18 Reported Medications Prochlorperazine Maleate (Compazine) 10 Mg Tablet 06/13/18 Vancomycin Hcl (VANCOMYCIN HCL) 250 Mg Capsule, 250 MG PO QID, CAPSULE 06/13/18 Oxycodone Hcl (OXYCONTIN) 10 Mg Tab.er.12h, 5 MG PO Q4-6H, TAB 06/13/18 Discontinued Scripts Dicyclomine Hcl (DICYCLOMINE HCL) 20 Mg Tablet, 1 TAB PO QID, #60 TAB 0 Refills Prov:ZEESHAN GONSALES MD 06/07/18 Pantoprazole Sodium (PANTOPRAZOLE SODIUM) 40 Mg Tablet.dr, 1 TAB PO BIDAC, #60 TAB 3 Refills Take 1 tablet, on an empty stomach, twice each day, and wait 30 minutes before eating. Prov:ZEESHAN GONSALES MD 05/27/18 Allergies: Coded Allergies: morphine (Verified Allergy, Unknown, SWELLING AND ITCHING, 06/13/18) metronidazole (Verified Adverse Reaction, Intermediate, 06/13/18) Patient History: FH: CHF (congestive heart failure) FATHER FH: hypertension FATHER Hx Smoking: Yes Smoking Status: Former Smoker When Quit Tobacco?: 20 years ago Caffeine Intake: Tea Caffeine/Cups Per Day: 2/WEEK Hx Alcohol Use: Yes When Quit Alcohol?: 20 years ago Hx Substance Use Disorder: No Social Drug Use: Never Review of Systems All Systems Reviewed/Normal: Yes, Except as Noted Gastrointestinal: Nausea, Vomiting, Abdominal Pain Exam Vital Signs Vital Signs Date Time Temp Pulse Resp B/P (MAP) Pulse Ox O2 Delivery O2 Flow Rate FiO2 06/13/18 22:36 98 Nasal Cannula 0.5 06/13/18 22:25 97.9 74 16 110/78 (89) General Appearance: Alert, Awake, No Acute Distress Neuro: No Gross deficits Eyes: PERRLA ENT: Normal Neck: No Masses Cardiovascular: Normal Rhythm & Peripheral Pulses Respiratory: No Respiratory Distress GI: Other (abdominal tenderness) Musculoskeletal: No Weakness/Pain Extremities: Soft and Non Tender, Warm, Pulses, Perfused; No Edema Integumentary: Skin Intact without Lesion / Mass Psych: Alert & Oriented X3 Medical Decision Making Data Points Result Diagram: 06/13/18212406/13/182124 Assessment and Plan Problems: (1) Nausea and vomiting Status: Chronic Assessment & Plan: Worsening of chronic n/v. Will continue Compazine, IV Zofran. Ativan at bedtime PRN. Will need robust PO regimen to allow her to avoid hospitalization. IV NS at 100cc/hr. (2) Metastatic malignant melanoma Assessment & Plan: She is to begin treatment with [facility]. She is established with Dr Fernandez. (3) C. difficile colitis Assessment & Plan: No further diarrhea, completed 6 days PO vancomycin at admission. Continue Abx. (4) Epigastric abdominal pain Status: Chronic Assessment & Plan: Secondary to metastasis of melanoma to liver, spleen. Venous Thromboembolism Antithrombotics Is Pt On Any Antithrombotics?: Yes Exam Sepsis Risk: No Definite Risk ALIZE PETERS DO Jun 14, 2018 00:16
[2018-06-14] MEDS: ONDANSETRON 4 MG/2 ML VIAL IVP PRN ×5 (00:31→18:47)
[2018-06-14 01:56] VITALS: BP 113/68
[2018-06-14] MEDS: NS(*) 0.9% 1000 ML BAG 1,000 ML IV PRN ×3 (02:03→23:35)
[2018-06-14] MEDS: ACETAMINOPHEN 325 MG TAB PO PRN (05:01)
[2018-06-14] MEDS ORDERED: LORazepam 2 MG/ML VIAL IVP PRN (06:40)
[2018-06-14] MEDS ORDERED: HYDROmorphone HCL 2 MG/ML SDV IVP PRN (06:40)
[2018-06-14] MEDS ORDERED: oxyCODONE HCL 5 MG CAP PO PRN (06:40)
[2018-06-14] MEDS: PROCHLORPERAZINE MAL 5 MG TAB PO PRN ×4 (07:20→20:15)
[2018-06-14] MEDS: DOCUSATE SODIUM 100 MG CAP PO SCH ×2 (08:26→20:17)
[2018-06-14] MEDS: ENOXAPARIN 40 MG/0.4ML SYR SC SCH (08:28)
[2018-06-14 08:30] VITALS: BP 99/54; Ht 180.3 cm; Wt 74.4 kg
[2018-06-14] MEDS ORDERED: BISACODYL 10 MG SUPP PR ONE (08:55)
[2018-06-14] MEDS: VANCOMYCIN HCL 125 MG CAPSULE PO SCH ×4 (08:57→20:15)
[2018-06-14] MEDS ORDERED: VANCOMYCIN HCL 125 MG CAPSULE PO SCH (09:00)
[2018-06-14] MEDS ORDERED: POLYETHYLENE GLYCOL 17 GM PKT PO SCH (09:00)
--- NOTE | 2018-06-14 09:01 | Hospitalist Progress Note ---
Subjective Progress Notes Subjective She reports some improvement in the nausea and pain. She is constipated. Physical Exam Vital Signs Date Time Temp Pulse Resp B/P (MAP) Pulse Ox O2 Delivery O2 Flow Rate FiO2 06/14/18 03:20 92 06/14/18 01:56 98.1 62 18 113/68 (83) Room Air 06/14/18 01:47 0.5 Intake and Output 06/14/18 07:00 Intake Total 1000 ml Balance 1000 ml Intake IV Total 1000 ml # Voids 2 General Appearance: Alert, Awake Cardiovascular: Regular Rate and Rhythm Respiratory: Clear to Auscultation GI: Other (soft with some tenderness reported over both upper quadrants/BS present) Result Diagram: 06/13/18212406/14/18 0536 Monitor Interpretation: Normal Sinus Rhythm Assessment and Plan Problems: (1) Nausea and vomiting Status: Chronic Assessment & Plan: Will continue Compazine. She has not tolerated the Zofran as well (headache and possibly constipation). Will continue Ativan prn as well. Will continue IV fluids. (2) Metastatic malignant melanoma Assessment & Plan: She is to begin treatment with Cancer Center. She is established with Dr Fernandez. (3) C. difficile colitis Assessment & Plan: No further diarrhea. Will complete a full course of PO vancomycin (currently on day 7). (4) Epigastric abdominal pain Status: Chronic Assessment & Plan: Secondary to metastatic lesions to liver, spleen. She is on oxycodone, which can certainly complicate her nausea as well as constipation. Will have her on a bowel regimen as well. Exam Sepsis Risk: No Definite Risk TOREY LAZARO MD Jun 14, 2018 09:01
[2018-06-14 10:49] VITALS: BP 119/73
[2018-06-14] MEDS ORDERED: VANC125C3 PO (11:58)
[2018-06-14] MEDS: oxyCODONE HCL 5 MG CAP PO PRN ×4 (12:27→20:22)
--- NOTE | 2018-06-14 12:56 | Medical Nutrition Therapy ---
Nutrition Anthropometrics Height (Inches): 71.00 Height (Calculated Centimeters: 180.826000 Weight (Pounds): 164 Weight (Calculated Kilograms): 74.389 BMI: 22.9 Jax Nutrition Score: Probably Inadequate Jax Nutrition Risk Score: 20 Dietary Referral Nutrition Risk Factors: Unplanned Loss >10lbs, Recent Nutrition Impact Nutrition Risk Comment: nausea and vomiting Physical Findings Physical Appearance: Skin Appearance Skin Appearance: Edema Edema Location Modifier: Edema Location: Type of Edema: Degree of Edema: Gastrointestinal Symptoms GI Symtoms: Nausea Tube Present: Bowel Sounds: Recent Bowel Pattern: Stool Characteristics: Nutritional Diagnosis Nutritional Risk Acuity 2: V/D > 3 Days Nutritional Risk Acuity 3: Nausea, Weight Loss, Cancer Past Medical History: Hx og epigastric pain and N/V Nutritional Acuity: 2-Moderate Nutrition Diagnosis: Increased Nutrient Needs Nutrition Etiology: Physiological Causes Nutrition Problem/Etiology/Sym: Increased nutrient needs, as related to physiological causes, as evidenced by weight loss, vomiting > 3 ddays, and cancer treatment. Energy Requirement: 1900 ([employer], AF-1.3) Protein Requirement: 74 (1g/kcal) Fluid Requirement: 1900 (1ml/kcal) Diet Type: Diet as Tolerated NAVARRO/REG Nutrition Intervention: Cont diet as ordered, Encourage intake Nutrition Monitoring & Eval RD Patient Assessment Time: [address] Assessment Type: RD Assessment Patient Nutrition Acuity: 2-Moderate Follow Up Date: Jun 19, 2018 Nutritional Comment: 06/14. Admitted for N/V, ab pain, dehydration. Pt is being treated for N/V and chronic metastatic malignant melanoma of liver and spleen, Cdiff and epigastric pain. Pt reported weight loss, likely due to cancer treatment. Pt is on NAVARRO, no meals to report. Notable labs include: low sodium 131, BUN 6, and total protein 6.1. Elevated labs AST 65, ALT 79, and alkaline phosphate 203. Pt is 71in, 164lbs, and has a normal BMI of 22. Recommend pt consume 1900 kcal and 74 g protein each day. Encourage intake. MR RECINOSKEVIN Jun 14, 2018 12:18
[2018-06-14 15:06] VITALS: BP 110/56
[2018-06-14 18:47] VITALS: BP 123/78
[2018-06-15] MEDS: PROCHLORPERAZINE MAL 5 MG TAB PO PRN ×4 (02:23→17:29)
[2018-06-15] MEDS: oxyCODONE HCL 5 MG CAP PO PRN ×6 (02:24→23:18)
[2018-06-15] MEDS: ENOXAPARIN 40 MG/0.4ML SYR SC SCH (09:00)
[2018-06-15] MEDS ORDERED: SENNOSIDES 8.6 MG TAB PO SCH (09:00)
[2018-06-15] MEDS ORDERED: POLYETHYLENE GLYCOL 17 GM PKT PO SCH (09:40)
[2018-06-15] MEDS: VANCOMYCIN HCL 125 MG CAPSULE PO SCH ×4 (09:55→21:29)
[2018-06-15] MEDS: DOCUSATE SODIUM 100 MG CAP PO SCH ×2 (09:55→21:29)
[2018-06-15 09:58] VITALS: BP 100/69
[2018-06-15] MEDS ORDERED: LORazepam 1 MG TAB PO PRN (10:15)
--- NOTE | 2018-06-15 10:22 | Hospitalist Progress Note ---
Subjective Progress Notes Subjective She had nausea yesterday after receiving pills but that resolved with smelling rubbing alcohol. Physical Exam Vital Signs Date Time Temp Pulse Resp B/P (MAP) Pulse Ox O2 Delivery O2 Flow Rate FiO2 06/15/18 09:58 97.8 71 16 100/69 (79) 97 Room Air 06/14/18 01:47 0.5 Intake and Output 06/15/18 07:00 Intake Total 3876 ml Balance 3876 ml Intake Oral 1900 ml IV Total 1976 ml # Voids 5 # Bowel Movements 1 General Appearance: Alert, Awake, No Acute Distress GI: Other (Soft, epigastric tenderness to palpation. Nodularity/mass felt right of midline in epigastrum) Result Diagram: 06/13/185 06/14/18 0536 Monitor Interpretation: Normal Sinus Rhythm Assessment and Plan Problems: (1) Nausea and vomiting Status: Chronic Assessment & Plan: Last vomited before admission. She had an acute nausea event yesterday that resolved with smelling rubbing alcohol. Tolerating oral intake. Will use all oral antiemetics to see how she does (i.e. Compazine, Zofran, Ativan prn as well). Saline lock. (2) Metastatic malignant melanoma Assessment & Plan: She is to begin treatment with [facility]. She is established with Dr Fernandez. (3) C. difficile colitis Assessment & Plan: No further diarrhea. Will complete a full course of PO vancomycin (currently on day 8). (4) Epigastric abdominal pain Status: Chronic Assessment & Plan: Secondary to metastatic lesions to liver, spleen. She is on oxycodone, which can certainly complicate her nausea as well as constipation. Will have her on a bowel regimen as well. Exam Sepsis Risk: No Definite Risk OBI CARRANZA MD Jun 15, 2018 10:22
[2018-06-15] MEDS: ONDANSETRON 4 MG ODT TABDP SL PRN ×2 (10:47→19:14)
[2018-06-15] MEDS: ACETAMINOPHEN 325 MG TAB PO PRN (11:28)
[2018-06-15 11:30] VITALS: BP 116/81
[2018-06-15] MEDS ORDERED: PROMETHAZINE 25 MG/ML 1 ML AMP IVP PRN (12:45)
[2018-06-15] MEDS: LORazepam 2 MG/ML VIAL IVP PRN ×2 (13:05→21:33)
[2018-06-15] MEDS ORDERED: VANCOMYCIN HCL 125 MG CAPSULE PO ONE (13:10)
[2018-06-15 15:06] VITALS: BP 99/52
[2018-06-15 21:44] VITALS: BP 107/70
[2018-06-15 23:15] VITALS: BP 126/82
[2018-06-16] MEDS: oxyCODONE HCL 5 MG CAP PO PRN ×2 (03:37→07:49)
[2018-06-16 03:39] VITALS: BP 111/69
[2018-06-16] MEDS: ONDANSETRON 4 MG ODT TABDP SL PRN (07:49)
[2018-06-16 07:50] VITALS: BP 108/68
[2018-06-16] MEDS ORDERED: PROC10TA4 PO (08:04)
[2018-06-16] MEDS ORDERED: OXYC-823 PO (08:04)
[2018-06-16] MEDS ORDERED: ONDA4TAB PO (08:04)
[2018-06-16] MEDS ORDERED: LIDO700A19 TOP (08:04)
[2018-06-16] MEDS ORDERED: LOR1 PO (08:04)
[2018-06-16] MEDS ORDERED: OXYC5TAB38 PO (08:04)
[2018-06-16] MEDS ORDERED: SENN-274 PO (08:04)
--- NOTE | 2018-06-16 08:14 | Hospitalist Depart ---
Discharge Summary Reason for Hosp/Final Diag: (1) Nausea and vomiting Status: Chronic Hospital Course & Plan: At time of admission, she was unable to keep any food or fluids down. She was given IV fluids and antiemetics. She had significant improvement, but did have some lingering symptoms. She had improved to the point we were able to saline lock her IV and she was able to maintain her intake. She will continue Compazine, Zofran, and Ativan prn as well. She will follow up closely with her oncology team as an outpatient. (2) Metastatic malignant melanoma Hospital Course & Plan: She is to begin Opdiv[facility] treatment with Cancer Center this coming week. She is established with Dr. Milligan. (3) C. difficile colitis Hospital Course & Plan: No further diarrhea. Will complete a full 14 day course of PO vancomycin (currently on day 9). (4) Epigastric abdominal pain Status: Chronic Hospital Course & Plan: Secondary to metastatic lesions to liver, spleen. She is on oxycodone (OxyContin and Oxy IR), which can certainly complicate her nausea as well as constipation. Will have her on a bowel regimen as well. Departure Weight (Pounds): 164 Result Diagram: 06/13/18212406/16/18 0516 Item Value Date Time Sodium Level 132 mmol/L L 06/13/182124 Potassium Level 4.2 mmol/L 06/13/182124 Chloride Level 91 mmol/L L 06/13/182124 Blood Urea Nitrogen 7 mg/dl 06/13/182124 Carbon Dioxide Level 31 mmol/L 06/13/182124 Creatinine 0.80 mg/dl 06/13/182124 Glomerular Filtration Rate Calc > 60.0 06/13/182124 Random Glucose 122 mg/dl H 06/13/182124 Lactate 1.9 mmol/L 06/13/182124 Calcium Level 9.6 mg/dl 06/13/182124 Total Bilirubin 1.4 mg/dl H 06/13/182124 Aspartate Amino Transf (AST/SGOT) 85 U/L H 06/13/182124 Alanine Aminotransferase (ALT/SGPT) 96 U/L H 06/13/182124 Alkaline Phosphatase 238 U/L H 06/13/182124 C-Reactive Protein 1.3 mg/dl H 06/13/182124 Total Protein 7.2 g/dl 06/13/182124 Albumin 4.2 g/dl 06/13/182124 Lipase 55 U/L 06/13/182124 Human Chorionic Gonadotropin, Qual Negative 06/13/182124 Prothrombin Time 12.8 seconds 06/13/182124 Prothromb Time International Ratio 0.97 06/13/182124 Activated Partial Thromboplast Time 28 seconds 06/13/182124 EKG PATIENT NAME: Anny Yeboah : 1970 MR: [id number] V: [id number] EXAM DATE: ORDERING PHYSICIAN: MERCEDES MORRIS TECHNOLOGIST: Location: [facility] Patient: Anny Yeboah : 1970 Visit/Account:[id number] Date of Sevice: 06/13/2018 Abdomen: Indication: Abdominal distention and nausea. Technique: 2 supine views of the abdomen were obtained. Comparison: None. Findings: There is a moderate amount of stool in the colon. There are no signs of obstruction or focal dilatation. No suspicious calcifications are identified. There are postoperative changes in the lower lumbar spine. No acute skeletal deformity is identified. IMPRESSION: There is a moderate amount of stool in the colon. There is no eviden ce of obstruction or focal dilatation. Report Dictated By: Marshall Miller MD at 06/13/2018 11:05 PM Report E-Signed By: Marshall Miller MD at 06/13/2018 11:07 PM WSN:[id number] Condition: Improved Discharge: Home Time Spent: > 30 min Discharge Instructions Home Meds Active Scripts Lidocaine (Lidocaine) 5 % Adh..patch, 1 PATCH TOP DAILY PRN for PAIN, #20 PATCH 1 Refill Prov:TOREY LAZARO MD 06/16/18 Oxycodone Hcl (OXYCODONE HCL) 5 Mg Tablet, 5-10 MG PO Q4H PRN for PAIN for 7 Days, #30 TAB 0 Refills Prov:TOREY LAZARO MD 06/16/18 Sennosides/Docusate Sodium (SENNA-TIME S TABLET) 1 Each Tablet, 1 EACH PO BID for 30 Days, #60 TAB 1 Refill Prov:TOREY LAZARO MD 06/16/18 Lorazepam (LORAZEPAM) 1 Mg Tab, 1 MG PO Q4-6H PRN for nausea/insomnia for 7 Days, #20 TAB 1 Refill Prov:TOREY LAZARO MD 06/16/18 Prochlorperazine Maleate (Compazine) 10 Mg Tablet, 1 TAB PO Q6H PRN for NAUSEA, #20 TAB 1 Refill Prov:TOREY LAZARO MD 06/16/18 Oxycodone Hcl (OXYCONTIN) 10 Mg Tab.er.12h, 5 MG PO BID for 7 Days, #14 TAB 0 Refills Prov:TOREY LAZAOR MD 06/16/18 Ondansetron (ZOFRAN ODT) 4 Mg Tab.rapdis, 1 TAB PO Q6H PRN for NAUSEA, #20 TAB.MOOSE 3 Refills Prov:TOREY LAZARO MD 06/16/18 Reported Medications Vancomycin Hcl (VANCOMYCIN HCL) 125 Mg Capsule, 125 MG PO QID, CAPSULE 06/14/18 Discontinued Reported Medications Vancomycin Hcl (VANCOMYCIN HCL) 250 Mg Capsule, 250 MG PO QID, CAPSULE 06/13/18 Discontinued Scripts Dicyclomine Hcl (DICYCLOMINE HCL) 20 Mg Tablet, 1 TAB PO QID, #60 TAB 0 Refills Prov:ZEESHAN GONSALES MD 06/07/18 Follow up Referrals: Oncology @ [place] Diet: Regular Activity: As Tolerated Special Instructions: Follow up with [facility] as planned tomorrow. Copies to: SHER MILLIGAN MD ; Venous Thromboembolism Antithrombotics Is Pt On Any Antithrombotics?: Yes TOREY LAZARO MD Jun 16, 2018 08:14
[2018-06-16] MEDS ORDERED: DOCUSATE SOD/SENNA 1 EACH TAB PO SCH (09:00)
[2018-06-16] MEDS: VANCOMYCIN HCL 125 MG CAPSULE PO SCH (09:31)
[2018-06-16] MEDS: ENOXAPARIN 40 MG/0.4ML SYR SC SCH (09:32)
== END 2018-06-16 09:40 | disposition home or self-care (01) | DRG 375 ==
LOC: ER 21:00 → OBSVTOIN 22:12 → INTOOBSV 22:12 → MED 22:12
PROVIDERS: ADMIT Internal Medicine; ATTEND Internal Medicine
DX: C78.89 Secondary malignant neoplasm of other digestive organs (principal); A04.72 Enterocolitis due to Clostridium difficile, not specified as recurrent; C78.7 Secondary malignant neoplasm of liver and intrahepatic bile duct; R11.2 Nausea with vomiting, unspecified; C43.9 Malignant melanoma of skin, unspecified; E86.0 Dehydration; R62.7 Adult failure to thrive; K59.03 Drug induced constipation; T45.0X5A Adverse effect of antiallergic and antiemetic drugs, initial encounter; T40.2X5A Adverse effect of other opioids, initial encounter; Z87.891 Personal history of nicotine dependence
CPT/HCPCS: 36415; 74018; 82040; 82247; 82310; 82374; 82435; 82565; 82947; 83605; 83690; 84075; 84132; 84155; 84295; 84450; 84460; 84520; 84703; 85025; 85610; 85730; 86140; 93005; 96361; 96374; 99284; J1170; J2060; J2405; J7030; Q0164; S0119

== ENCOUNTER 2018-06-14 16:08 | Outpatient (RCR) | payer OTHER ==
[2018-06-14 08:30] VITALS: BMI 22.9
[~2018-06-14 16:08] MED LIST changes: +OXYC-823 PO; +PROC10TA4; +VANC125C3 PO; +VANC250C3 PO
[2018-06-16] MEDS ORDERED: LOR1 PO (08:04)
[2018-06-16] MEDS ORDERED: PROC10TA4 PO (08:04)
[2018-06-16] MEDS ORDERED: OXYC5TAB38 PO (08:04)
[2018-06-16] MEDS ORDERED: OXYC-823 PO (08:04)
[2018-06-16] MEDS ORDERED: SENN-274 PO (08:04)
[2018-06-16] MEDS ORDERED: LIDO700A19 TOP (08:04)
[2018-06-16] MEDS ORDERED: ONDA4TAB PO (08:04)
[2018-06-17] MEDS ORDERED: LIDOCAINE/SOD BICARB 8.4% SYR ONE (13:10)
[2018-06-17] MEDS ORDERED: ONDANSETRON 4 MG/2 ML VIAL ONE (13:10)
[2018-06-17] MEDS ORDERED: NIVOLUMAB 100 MG SDV 200 MG, NIVOLUMAB 40 MG/4 ML SDV 40 MG in NS(*) 0.9% 100 ML BAG 10... IV ONE (14:50)
[2018-06-17] MEDS ORDERED: LIDOCAINE/SOD BICARB 8.4% SYR ID PRN (15:25)
[2018-06-17] MEDS ORDERED: NS(*) 0.9% 100 ML BAG 100 ML IVPB PRN (15:25)
[2018-06-17] MEDS ORDERED: DEXTROSE 5%(*) 100 ML BAG 100 ML IVPB PRN (15:25)
[2018-06-17 16:23] VITALS: BP 111/83
[2018-06-21 13:11] LABS: PLATELET COUNT, AUTOMATED 239 K/uL (150-450)
[2018-06-21 13:14] VITALS: BP 115/72
[2018-06-21] MEDS ORDERED: NS(*) 0.9% 1000 ML BAG 1,000 ML IV PRN (13:40)
== END 2018-08-28 11:23 | disposition home or self-care (01) ==
LOC: SPU 16:08
PROVIDERS: ATTEND Internal Medicine Medical Oncology
DX: C43.9 Malignant melanoma of skin, unspecified (principal); C79.9 Secondary malignant neoplasm of unspecified site
CPT/HCPCS: 83735; 84439; 84443; 84481; 85025; 85027; 96360; 96361; 96375; 96413; J2405; J7030; J7050; J9299; 82040; 82247; 82310; 82374; 82435; 82565; 82947; 84075; 84132; 84155; 84295; 84450; 84460; 84520

== ENCOUNTER → 2018-07-08 | Outpatient (REF) | payer OTHER ==
[2018-06-14 08:30] VITALS: BMI 22.9
[~2018-07-08] MED LIST changes: +LIDO700A19 TOP; +LOR1 PO; +OXYC5TAB38 PO; +PROC10TA4 PO; +SENN-274 PO
[2018-07-08 19:49] LABS: PLATELET COUNT, AUTOMATED 246 K/uL (150-450)
== END ==
LOC: ZZSTITCHES 19:38
PROVIDERS: ATTEND Physician Assistant
DX: N39.0 Urinary tract infection, site not specified (principal); C43.9 Malignant melanoma of skin, unspecified
CPT/HCPCS: 82040; 82247; 82310; 82374; 82435; 82565; 82947; 84075; 84132; 84155; 84295; 84450; 84460; 84520; 85025; 87088

== ENCOUNTER → 2018-09-02 | Outpatient (CLI) | payer OTHER ==
[~2018-09-02] MED LIST changes: +GADOBENATE 529MG/1ML 15ML VIAL IVP ONE
--- NOTE | 2018-09-02 09:08 | RADIOLOGY IMAGING REPORT ---
FACILITY: [facility] - [place] PATIENT NAME: Anyn Yeboah : 1970 MR: [id number] V: [id number] EXAM DATE: ORDERING PHYSICIAN: [facility] TECHNOLOGIST: Location: [facility] [place] Patient: Anny Yeboah : 1970 Visit/Account:[id number] Date of Sevice: 09/02/2018 Examination: MR brain without and with contrast History: Metastatic melanoma Comparison: None Technique: Multiplane MR imaging was performed through the brain without and with contrast. 15 cc IV multihance was administered. Findings: Diffusion: None Ventricles: Normal Midline shift: None Extraxial fluid: None Midline craniocervical structures: Normal Parenchyma: Left frontal vertex 4.5 mm round lesion is hyperintense on T1 precontrast acquisition, lo w in signal on gradient acquisition and exhibits no definitive enhancement, axial T1 precontrast imag e 22. Punctate high T1 signal focus in the right medial frontal region, sagittal T1 image 11 precontrast (t his finding is not visible on the axial T1 acquisition. No pathologic enhancement in this area on th e postcontrast acquisitions. Enhancement: No pathologic enhancement Vascular flow voids: Normal Orbits and paranasal sinuses: Normal Other: No significant additional finding. Impression: 1. 4.5 mm nonenhancing hemorrhagic metastatic lesion in the left frontal vertex cortex. 2. Additional punctate nonenhancing high T1 signal focus in the medial right frontal lobe seen on th e sagittal precontrast T1 acquisition only which is concerning for an additional metastasis given the finding described in impression point #1. 3. Otherwise normal brain MR without and with contrast. Report Dictated By: Jaspreet Morales MD at 09/02/2018 8:55 AM Report E-Signed By: Jaspreet Morales MD at 09/02/2018 9:03 AM WSN:[id number]
== END ==
LOC: MRI 03:33
DX: Z51.12 Encounter for antineoplastic immunotherapy (principal); C79.9 Secondary malignant neoplasm of unspecified site
CPT/HCPCS: 70553; A9577

== ENCOUNTER → 2018-09-03 | Outpatient (REF) | payer OTHER ==
[~2018-09-03] MED LIST changes: -GADOBENATE 529MG/1ML 15ML VIAL IVP ONE
== END ==
LOC: ZZSTITCHES 16:12
PROVIDERS: ATTEND Physician Assistant
DX: R50.9 Fever, unspecified (principal); R30.0 Dysuria; R19.7 Diarrhea, unspecified; R17 Unspecified jaundice; R82.79 Other abnormal findings on microbiological examination of urine
CPT/HCPCS: 81001; 82040; 82247; 82310; 82374; 82435; 82533; 82565; 82947; 84075; 84132; 84155; 84295; 84443; 84450; 84460; 84520; 87088

== ENCOUNTER → 2018-11-06 | Outpatient (CLI) | payer OTHER | LOC: LAB 14:00 | PROVIDERS: ATTEND Internal Medicine Medical Oncology | DX: C79.9 Secondary malignant neoplasm of unspecified site (principal); R94.5 Abnormal results of liver function studies | CPT/HCPCS: 36415; 82040; 82247; 82310; 82374; 82435; 82565; 82947; 84075; 84132; 84155; 84295; 84450; 84460; 84520 ==

== ENCOUNTER → 2018-11-06 | Outpatient (CLI) | payer OTHER ==
--- NOTE | 2018-11-06 15:43 | RADIOLOGY IMAGING REPORT ---
FACILITY: [facility] PATIENT NAME: Anny Yeboah : 1970 MR: [id number] V: [id number] EXAM DATE: ORDERING PHYSICIAN: [facility] TECHNOLOGIST: [place] [facility] [place] Patient: Anny Yeboah : 1970 Visit/Account:[id number] Date of Sevice: 11/06/2018 Study: MRI of the brain without and with gadolinium contrast. Indication: Intracranial metastatic disease. Comparison study: 09/02/2018 Contrast used: 15 mL MultiHance gadolinium contrast Technique: Multiplanar MRI sequences were obtained through the brain before and after the administrat ion of gadolinium contrast. The examination demonstrates no evidence of acute intracranial hemorrhage. There is no evidence of ex tra-axial collection or hydrocephalus. There is an area of high T1-weighted signal present within the parasagittal posterior left frontal lo be. This has decreased in conspicuity and size as compared to the previous study. Previously, this me asured 4.5 mm. This currently measures less than 3 mm. There is no evidence of additional lesions wit hin the brain parenchyma. The pituitary gland is unremarkable in appearance. There is no evidence of abnormality of the pineal gland. A diffusion-weighted sequence was performed and demonstrates no evidence of active ischemia. There is no evidence of active infarct The orbits are unremarkable. The paranasal sinuses are unremarkable Following the administration of gadolinium contrast, there is no abnormal intracranial contrast enhan cement. IMPRESSION: Decrease in size in conspicuity of high T1-weighted signal lesion within the posterior pa rasagittal left frontal lobe. No additional lesions are identified within the brain parenchyma. Report Dictated By: Nando Singh at 11/06/2018 3:34 PM Report E-Signed By: Nando Singh at 11/06/2018 3:39 PM WSN:[id number]
== END ==
LOC: MRI 00:27
DX: C79.31 Secondary malignant neoplasm of brain (principal)
CPT/HCPCS: 70553

== ENCOUNTER → 2018-11-15 | Outpatient (CLI) | payer OTHER | LOC: LAB 08:46 | PROVIDERS: ATTEND Internal Medicine Medical Oncology | DX: R74.8 Abnormal levels of other serum enzymes (principal); C79.9 Secondary malignant neoplasm of unspecified site | CPT/HCPCS: 36415; 82040; 82247; 82310; 82374; 82435; 82565; 82947; 84075; 84132; 84155; 84295; 84450; 84460; 84520 ==

== ENCOUNTER 2018-11-27 13:30 | Outpatient (RCR) | payer OTHER ==
[~2018-11-27 13:30] MED LIST changes: -VANC125C3 PO; +VANC125C4 PO; -VANC250C3 PO; +VANC250C4 PO
[2018-11-27 14:06] VITALS: BP 114/72
[2018-12-13] MEDS ORDERED: FENT-17 TOP (20:22)
[2018-12-13] MEDS ORDERED: TRIA15CR40 (20:22)
[2018-12-13] MEDS ORDERED: FENT-15 TOP (20:22)
[2018-12-13] MEDS ORDERED: LORA-630 PO (20:22)
[2018-12-13] MEDS ORDERED: PRED20TA6 PO (20:22)
[2018-12-14] MEDS ORDERED: PRED20TA6 PO (09:31)
[2018-12-14] MEDS ORDERED: OXYC5CAP21 PO (09:38)
== END 2019-02-24 ==
LOC: SPU 13:30
PROVIDERS: ATTEND Internal Medicine Medical Oncology
DX: R74.8 Abnormal levels of other serum enzymes (principal); C43.9 Malignant melanoma of skin, unspecified; C79.9 Secondary malignant neoplasm of unspecified site
CPT/HCPCS: 36415; 82040; 82247; 82310; 82374; 82435; 82565; 82947; 84075; 84132; 84155; 84295; 84450; 84460; 84520

== ENCOUNTER → 2018-12-12 | Outpatient (CLI) | payer OTHER ==
[~2018-12-12] MED LIST changes: +FENT-15 TOP; +FENT-17 TOP; +LORA-630 PO; +OXYC5CAP21 PO; +PRED20TA6 PO; +TRIA15CR40
== END ==
LOC: LAB 10:22
PROVIDERS: ATTEND Internal Medicine Medical Oncology
DX: R19.7 Diarrhea, unspecified (principal)
CPT/HCPCS: 87493; 87506

== ENCOUNTER 2018-12-13 11:34 | Observation (INO) | payer OTHER ==
[2018-06-14 08:30] VITALS: Ht 180.3 cm; Wt 79.8 kg
[~2018-12-13] VITALS: Ht 180.3 cm; Wt 79.8 kg
[~2018-12-13 11:34] MED LIST changes: -FENT-15 TOP; -FENT-17 TOP; -LORA-630 PO; -OXYC5CAP21 PO; -PRED20TA6 PO; -TRIA15CR40
--- NOTE | 2018-12-13 11:52 | ER Report ---
History and Physical Time Seen By MD: 11:51 Hx. of Stated Complaint: patient reports nausea and abdominal cramping. she also reports bloody stool and diarrhea. she reports a cough and some wheezing. she has had exposure to influenza. patient has stage 4 melanoma and had immunotherapy 9 days ago. HPI/ROS CHIEF COMPLAINT: Week long history of Fevers, chills, diarrhea, cough HISTORY OF PRESENT ILLNESS: 48-year-old female patient presents to emergency room with complaint of fevers, chills, diarrhea and cough. Patient states that this been going on for the past 9 days. Seems to be getting worse. She states that she has had coarse lung sounds, she's had blood in her diarrhea. She states that she did receive an immunomodulatory or medication for her stage IV melanoma. Patient states that since then she's not felt well. She's had significant amounts of coughing, shortness of breath, nausea and diarrhea. Patient states she's not had any vomiting. Patient states she's tried Imodium for this with no improvement. She states this morning she did pass a not a diarrhea stool which was very bloody. Patient has recently been taken off her fentanyl. REVIEW OF SYSTEMS: Respiratory: No cough, no dyspnea. Cardiovascular: No chest pain, no palpitations. Gastrointestinal: As noted above Musculoskeletal: No back pain. Allergies: Coded Allergies: morphine (Verified Allergy, Unknown, SWELLING AND ITCHING, 06/13/18) metronidazole (Verified Adverse Reaction, Intermediate, 06/13/18) Home Meds Active Scripts Oxycodone Hcl (OXYCONTIN) 10 Mg Tab.er.12h, 5 MG PO BID for 7 Days, #14 TAB 0 Refills Prov:TOREY LAZARO MD 06/16/18 Reported Medications Prednisone (PREDNISONE) 20 Mg Tablet, 70 MG PO QDAY FOR HEPATITIS 12/13/18 Fentanyl 25 Mcg Patch (FENTANYL 25 MCG PATCH) 1 Each Patch.td72, 25 MCG TOP Q72H FOR CANCER RELATED PAIN 12/13/18 Fentanyl 12 Mcg Patch (FENTANYL 12 MCG PATCH) 1 Each Patch.td72, 12.5 MCG TOP Q72H FOR CANCER RELATED PAIN 12/13/18 Lorazepam (LORAZEPAM) 0.5 Mg Tablet, 1 TAB PO BID FOR CHEMOTHERAPY INDUCED NAUSEA/VOMITING 12/13/18 Triamcinolone Acetonide 0.1% Cr 15 Gm Tube (TRIAMCINOLONE ACETONIDE 0.1% CREAM) 15 Gm Cream..g. APPLY BID TO AA FOR SKIN INFLAMMATION 12/13/18 Discontinued Reported Medications Vancomycin Hcl (VANCOMYCIN HCL) 125 Mg Capsule, 125 MG PO QID, CAPSULE 06/14/18 Discontinued Scripts Lidocaine (Lidocaine) 5 % Adh..patch, 1 PATCH TOP DAILY PRN for PAIN, #20 PATCH 1 Refill Prov:TOREY LAZARO MD 06/16/18 Oxycodone Hcl (OXYCODONE HCL) 5 Mg Tablet, 5-10 MG PO Q4H PRN for PAIN for 7 Days, #30 TAB 0 Refills Prov:TOREY LAZARO MD 06/16/18 Sennosides/Docusate Sodium (SENNA-TIME S TABLET) 1 Each Tablet, 1 EACH PO BID for 30 Days, #60 TAB 1 Refill Prov:TOREY LAZARO MD 06/16/18 Lorazepam (LORAZEPAM) 1 Mg Tab, 1 MG PO Q4-6H PRN for nausea/insomnia for 7 Days, #20 TAB 1 Refill Prov:TOREY LAZARO MD 06/16/18 Prochlorperazine Maleate (Compazine) 10 Mg Tablet, 1 TAB PO Q6H PRN for NAUSEA, #20 TAB 1 Refill Prov:TOREY LAZARO MD 06/16/18 Ondansetron (ZOFRAN ODT) 4 Mg Tab.rapdis, 1 TAB PO Q6H PRN for NAUSEA, #20 TAB.MOOSE 3 Refills Prov:TOREY LAZARO MD 06/16/18 Past Medical/Surgical History Patient has a past medical history of H. pylori, frequent UTIs, ovarian cyst, dysmenorrhea, melanoma, alcohol use, anxiety, cancer. Patient has a surgical history of lipoma, tonsillectomy, hysterectomy. Patient has a family medical history of cancer, diabetes. Reviewed Nurses Notes: Yes Hx Smoking: Yes Smoking Status: Former Smoker Hx Substance Use Disorder: No Hx Alcohol Use: Yes Constitutional Vital Sign - Last 24 Hours 12/13/18 12/13/18 12/13/18 12/13/18 11:34 11:45 11:46 12:04 Temp 99.2 Pulse ??? 89 83 Resp 24 B/P (MAP) 116/79 (91) 116/79 Pulse Ox 94 96 O2 Delivery Room Air 3/15/19 3/15/19 3/15/19 3/15/19 12:34 12:37 13:00 13:04 Pulse 86 73 B/P (MAP) 105/61 (76) 111/66 (81) Pulse Ox 94 93 12/13/18 12/13/18 12/13/18 12/13/18 13:30 14:00 14:30 14:35 Pulse 75 81 77 76 B/P (MAP) 109/67 (81) 112/72 (85) 114/75 (88) Pulse Ox 94 90 96 95 12/13/18 12/13/18 15:00 15:05 Pulse 84 B/P (MAP) 111/71 (84) Pulse Ox 94 Physical Exam General Appearance: The patient is alert, has no immediate need for airway protection and no current signs of toxicity. Respiratory: Chest is non tender, lungs are clear to auscultation. Cardiac: regular rate and rhythm Gastrointestinal: Abdomen is soft and diffusely tender, no masses, bowel sounds normal. Musculoskeletal: Neck: Neck is supple and non tender. Extremities have full range of motion and are non tender. Skin: No rashes or lesions. DIFFERENTIAL DIAGNOSIS: After history and physical exam differential diagnosis was considered for fever in adults including but not limited to pneumonia, urinary tract infection, viral syndrome, and influenza. Included differential is abdominal pain including but not limited to appendicitis, cholecystitis, gastritis and urinary tract infection. Medical Decision Making Data Points Result Diagram: 12/13/18 1230 12/13/18 1230 Laboratory Hematology Test 12/13/18 12:30 12/13/18 12:36 Red Blood Count 4.71 M/uL (4.17-5.56) Mean Corpuscular Volume 79.1 fL (80.0-96.0) Mean Corpuscular Hemoglobin 26.8 pg (26.0-33.0) Mean Corpuscular Hemoglobin Concent 33.9 g/dL (32.0-36.0) Red Cell Distribution Width 17.4 % (11.5-14.5) Mean Platelet Volume 6.7 fL (7.2-11.1) Neutrophils (%) (Auto) % (39.4-72.5) Lymphocytes (%) (Auto) % (17.6-49.6) Monocytes (%) (Auto) % (4.1-12.4) Eosinophils (%) (Auto) % (0.4-6.7) Basophils (%) (Auto) % (0.3-1.4) Nucleated RBC Relative Count (auto) /100WBC Neutrophils # (Auto) K/uL (2.0-7.4) Lymphocytes # (Auto) K/uL (1.3-3.6) Monocytes # (Auto) K/uL (0.3-1.0) Eosinophils # (Auto) K/uL (0.0-0.5) Basophils # (Auto) K/uL (0.0-0.1) Nucleated RBC Absolute Count (auto) K/uL Neutrophils % (Manual) 44 % (39.4-72.5) Band Neutrophils % 25 % Lymphocytes % (Manual) 15 % (17.6-49.6) Monocytes % (Manual) 10 % (4.1-12.4) Eosinophils % (Manual) 0 % (0.4-6.7) Basophils % (Manual) 0 % (0.3-1.4) Metamyelocytes % 6 % Peripheral Blood Smear Yes Y/N Sodium Level 134 mmol/L (137-145) Potassium Level 3.4 mmol/L (3.5-5.0) Chloride Level 101 mmol/L (98-107) Carbon Dioxide Level 26 mmol/L (22-31) Blood Urea Nitrogen 8 mg/dl (7-18) Creatinine 0.80 mg/dl (0.52-1.04) Glomerular Filtration Rate Calc > 60.0 Random Glucose 105 mg/dl (75-110) Calcium Level 8.2 mg/dl (8.4-10.2) Total Bilirubin 0.8 mg/dl (0.2-1.3) Aspartate Amino Transf (AST/SGOT) 15 U/L (0-35) Alanine Aminotransferase (ALT/SGPT) 18 U/L (0-56) Alkaline Phosphatase 112 U/L (0-126) Total Protein 5.9 g/dl (6.3-8.2) Albumin 2.9 g/dl (3.5-5.0) Amylase Level 34 U/L (0-110) Lipase 11 U/L (23-300) Helicobacter pylori IgG Antibody Negative (NEGATIVE) Influenza Virus Type A (PCR) Negative (NEGATIVE) Influenza Virus Type B (PCR) Negative (NEGATIVE) Chemistry Test 12/13/18 12:30 12/13/18 12:36 White Blood Count 8.5 k/uL (4.5-11.0) Red Blood Count 4.71 M/uL (4.17-5.56) Hemoglobin 12.6 g/dL (12.0-16.0) Hematocrit 37.3 % (34.0-47.0) Mean Corpuscular Volume 79.1 fL (80.0-96.0) Mean Corpuscular Hemoglobin 26.8 pg (26.0-33.0) Mean Corpuscular Hemoglobin Concent 33.9 g/dL (32.0-36.0) Red Cell Distribution Width 17.4 % (11.5-14.5) Platelet Count 238 K/uL (150-450) Mean Platelet Volume 6.7 fL (7.2-11.1) Neutrophils (%) (Auto) % (39.4-72.5) Lymphocytes (%) (Auto) % (17.6-49.6) Monocytes (%) (Auto) % (4.1-12.4) Eosinophils (%) (Auto) % (0.4-6.7) Basophils (%) (Auto) % (0.3-1.4) Nucleated RBC Relative Count (auto) /100WBC Neutrophils # (Auto) K/uL (2.0-7.4) Lymphocytes # (Auto) K/uL (1.3-3.6) Monocytes # (Auto) K/uL (0.3-1.0) Eosinophils # (Auto) K/uL (0.0-0.5) Basophils # (Auto) K/uL (0.0-0.1) Nucleated RBC Absolute Count (auto) K/uL Neutrophils % (Manual) 44 % (39.4-72.5) Band Neutrophils % 25 % Lymphocytes % (Manual) 15 % (17.6-49.6) Monocytes % (Manual) 10 % (4.1-12.4) Eosinophils % (Manual) 0 % (0.4-6.7) Basophils % (Manual) 0 % (0.3-1.4) Metamyelocytes % 6 % Peripheral Blood Smear Yes Y/N Glomerular Filtration Rate Calc > 60.0 Calcium Level 8.2 mg/dl (8.4-10.2) Total Bilirubin 0.8 mg/dl (0.2-1.3) Aspartate Amino Transf (AST/SGOT) 15 U/L (0-35) Alanine Aminotransferase (ALT/SGPT) 18 U/L (0-56) Alkaline Phosphatase 112 U/L (0-126) Total Protein 5.9 g/dl (6.3-8.2) Albumin 2.9 g/dl (3.5-5.0) Amylase Level 34 U/L (0-110) Lipase 11 U/L (23-300) Helicobacter pylori IgG Antibody Negative (NEGATIVE) Influenza Virus Type A (PCR) Negative (NEGATIVE) Influenza Virus Type B (PCR) Negative (NEGATIVE) EKG/Imaging Imaging CT ABDOMEN PELVIS W/ CON HISTORY: abdominal pain, diarrhea, history of melanoma TECHNIQUE: Following administration of IV contrast contiguous axial images acquired through the abdomen/pelvis. Coronal and sagittal reformatting also performed.Dose Lowering Technique One of the following dose optimization techniques was utilized in the performance of this exam: Automated exposure control; adjustment of the mA and/or kV according to the patient's size; or use of an iterative reconstruction technique. Specific details can be referenced in the facility's radiology CT exam operational policy. CONTRAST: 75 mL Isovue-370 COMPARISON: September 12, 2017 FINDINGS: Visualized lung bases: There is a thick linear stranding in the lower lobes which may represent scarring or atelectasis there is a 3 mm noncalcified nodule inferior lateral aspect of the lingula best seen on image 21 series 3 and a 2 mm nodule inferior aspect the lingula best seen on image 33. There is a small pericardial effusion Hepatobiliary: There are innumerable solid hypoattenuating masses seen throughout the liver the largest measuring approximately 2.8 cm and the lateral segment of the left lobe. The liver is enlarged and has increased in size now measuring 25.6 cm in length (previously measuring 21 cm) Spleen: There has also been development of numerous hypoattenuating splenic masses the largest measuring approximately 2 cm . Spleen is also now enlarged measuring 17.3 cm in length. Adrenals: Negative. Pancreas: Negative. Kidneys ureters or bladder: Subcentimeter hypodensity in the left kidney may represent a cyst although is too small to characterize. This appears unchanged when compared the prior study Genitalia: Hysterectomy GI: There is diffuse wall thickening and enhancement seen throughout the entire colon which is likely related to colitis. There also appears to be thickening of the wall of the duodenum and proximal jejunum Vessels/spaces/nodes: There multiple small shotty mesenteric lymph nodes Bones/soft tissues: There is a small umbilical hernia containing fat. There are postsurgical changes lower lumbar spine with wide posterior decompression. The thecal sac appears dilated at this level and there appears to be some fat herniating into the dorsal aspect the spinal column at the level of L4-5. . There are small sclerotic densities seen in the right iliac bone and at L3 and L4 that appears stable and likely represent small bone islands Additional findings: None pertinent. IMPRESSION: Since the prior study there has been marked enlargement of the liver and spleen and development of innumerable metastases throughout both of these organs. There is a small pericardial effusion There are two small nodules in the inferior lingula measuring up to 3 mm not appreciated previously and is concerning for metastases Diffuse wall thickening with enhancement seen throughout the entire colon which is likely related to colitis There also appears to be thickening of the duodenum and proximal jejunum likely representing enteritis Multiple small shotty mesenteric lymph nodes Additional chronic findings as described Results were called to NARCISA RUTH at 12/13/2018 1:59 PM. Report Dictated By: Kami Aldana MD at 12/13/2018 1:38 PM Report E-Signed By: Kami Aldana MD at 12/13/2018 2:00 PM Exam type: CHEST PA LAT History: cough, fever Comparison: None. Findings: The lungs are free of acute effusions, infiltrates or edema. There is no evidence of a pneumothorax or pneumomediastinum. Cardiac silhouette is normal in size. The trachea is in midline. IMPRESSION: 1. No acute cardiopulmonary process is seen Report Dictated By: Kami Aldana MD at 12/13/2018 1:34 PM Report E-Signed By: Kami Aldana MD at 12/13/2018 1:35 PM ED Course/Re-evaluation ED Course Patient was admitted to exam room, history and physical were obtained. Differential diagnoses were considered. On examination lungs are clear, heart is regular, abdomen is soft and diffusely tender. A CBC, CMP, urinalysis were obtained. Urinalysis was unremarkable, CBC showed a white count of 8000, however did have 44% neutrophils and 25% bands. CT scan of the abdomen and pelvis showed diffuse colitis. Influenza screen was done which was negative. Chest x-ray showed no acute cardiac from a processes. I discussed the case with Dr. Bills, oncologist that works with the patient's oncologist. Patient does have stage IV metastatic melanoma. Dr. Bills recommended starting the patient on high-dose steroids, 80 mg of Solu-Medrol today, and then monitoring the patient overnight in the hospital. It is believed that the colitis is caused by the immunomodulating medications as she was given 9 days ago. Then discharge her home if she is tolerating oral intake well. I discussed plan with the patient and her they verbalized understanding and agreement. I discussed the case with Dr. Cruz, hospitalist, who agreed to accept the patient for admission. Decision to Disposition Date: Dec 13, 2018 Decision to Disposition Time: 15:25 Depart Departure Latest Vital Signs Vital Signs Date Time Temp Pulse Resp B/P (MAP) Pulse Ox O2 Delivery O2 Flow Rate FiO2 12/13/18 15:05 84 94 12/13/18 15:00 111/71 (84) 12/13/18 11:46 99.2 24 Room Air Impression: Primary Impression: Colitis Condition: Condition Unchanged Disposition: Admitted from ER Referrals: JAIMIE MENDOZA MD (PCP) NARCISA RUTH Dec 13, 2018 11:52
[2018-12-13] MEDS ORDERED: NS(*) 0.9% 1000 ML BAG 1,000 ML IV ONE ×2 (12:30→16:55)
[2018-12-13 12:45] LABS: PLATELET COUNT, AUTOMATED 238 K/uL (150-450)
[2018-12-13] MEDS ORDERED: IOPAMIDOL 76% 100 ML INFUS BTL 100 ML ONE (12:52)
[2018-12-13] MEDS ORDERED: fentaNYL CITR 100 MCG/2 ML AMP IVP ONE ×2 (12:55→15:30)
--- NOTE | 2018-12-13 13:40 | RADIOLOGY IMAGING REPORT ---
FACILITY: [facility] PATIENT NAME: Anny Yeboah : 1970 MR: [id number] V: [id number] EXAM DATE: [id number] ORDERING PHYSICIAN: NARCISA RUTH TECHNOLOGIST: Location: [facility] - [place] Patient: Anny Yeboah : 1970 Visit/Account:[id number] Date of Sevice: 12/13/2018 Exam type: CHEST PA LAT History: cough, fever Comparison: None. Findings: The lungs are free of acute effusions, infiltrates or edema. There is no evidence of a pneumothorax or pneumomediastinum. Cardiac silhouette is normal in size. The trachea is in midline. IMPRESSION: 1. No acute cardiopulmonary process is seen Report Dictated By: Kami Aldana MD at 12/13/2018 1:34 PM Report E-Signed By: Kami Aldana MD at 12/13/2018 1:35 PM WSN:[email or web address]
--- NOTE | 2018-12-13 14:04 | RADIOLOGY IMAGING REPORT ---
FACILITY: [facility] PATIENT NAME: Anny Yeboah : 1970 MR: [id number] V: [id number] EXAM DATE: ORDERING PHYSICIAN: NARCISA RUTH TECHNOLOGIST: Location: [facility] - [place] Patient: Anny Yeboah : 1970 Visit/Account:[id number] Date of Sevice: 12/13/2018 CT ABDOMEN PELVIS W/ CON HISTORY: abdominal pain, diarrhea, history of melanoma TECHNIQUE: Following administration of IV contrast contiguous axial images acquired through the abdom en/pelvis. Coronal and sagittal reformatting also performed.Dose Lowering Technique One of the following dose optimization techniques was utilized in the performance of this exam: Autom ated exposure control; adjustment of the mA and/or kV according to the patient's size; or use of an i terative reconstruction technique. Specific details can be referenced in the facility's radiology C T exam operational policy. CONTRAST: 75 mL Isovue-370 COMPARISON: September 12, 2017 FINDINGS: Visualized lung bases: There is a thick linear stranding in the lower lobes which may represent scar ring or atelectasis there is a 3 mm noncalcified nodule inferior lateral aspect of the lingula best s een on image 21 series 3 and a 2 mm nodule inferior aspect the lingula best seen on image 33. There is a small pericardial effusion Hepatobiliary: There are innumerable solid hypoattenuating masses seen throughout the liver the larg est measuring approximately 2.8 cm and the lateral segment of the left lobe. The liver is enlarged a nd has increased in size now measuring 25.6 cm in length (previously measuring 21 cm) Spleen: There has also been development of numerous hypoattenuating splenic masses the largest measu ring approximately 2 cm . Spleen is also now enlarged measuring 17.3 cm in length. Adrenals: Negative. Pancreas: Negative. Kidneys ureters or bladder: Subcentimeter hypodensity in the left kidney may represent a cyst althoug h is too small to characterize. This appears unchanged when compared the prior study Genitalia: Hysterectomy GI: There is diffuse wall thickening and enhancement seen throughout the entire colon which is likel y related to colitis. There also appears to be thickening of the wall of the duodenum and proximal j ejunum Vessels/spaces/nodes: There multiple small shotty mesenteric lymph nodes Bones/soft tissues: There is a small umbilical hernia containing fat. There are postsurgical change s lower lumbar spine with wide posterior decompression. The thecal sac appears dilated at this level and there appears to be some fat herniating into the dorsal aspect the spinal column at the level of L4-5. . There are small sclerotic densities seen in the right iliac bone and at L3 and L4 that smooth ears stable and likely represent small bone islands Additional findings: None pertinent. IMPRESSION: Since the prior study there has been marked enlargement of the liver and spleen and development of in numerable metastases throughout both of these organs. There is a small pericardial effusion There are two small nodules in the inferior lingula measuring up to 3 mm not appreciated previously a nd is concerning for metastases Diffuse wall thickening with enhancement seen throughout the entire colon which is likely related to colitis There also appears to be thickening of the duodenum and proximal jejunum likely representing enteriti s Multiple small shotty mesenteric lymph nodes Additional chronic findings as described Results were called to NARCISA RUTH at 12/13/2018 1:59 PM. Report Dictated By: Kami Aldana MD at 12/13/2018 1:38 PM Report E-Signed By: Kami Aldana MD at 12/13/2018 2:00 PM WSN:[email or web address]
[2018-12-13] MEDS ORDERED: methylPREDNIS SUCC 125 MG/2ML IVP ONE (15:10)
[2018-12-13 15:50] VITALS: BP 121/82
[2018-12-13] MEDS ORDERED: ONDANSETRON 4 MG/2 ML VIAL IVP PRN (16:55)
--- NOTE | 2018-12-13 18:10 | History & Physical ---
History of Present Illness Chief Complaint diarrhea History of Present Illness 48F with worsening diarrhea and acute hematochezia of one day duration. PMHx significant for stage 4 melanoma on immunotherapy. Reports chronic diarrhea since starting immunotherapy, recently was weaned off fentanyl. Had been having worsening diarrhea for 9 days since last infusion and this am had bowl full of blood after BM. Follows with [facility] for metastatic melanoma. History Problems: (1) Metastatic malignant melanoma Home Meds Active Scripts Lorazepam (LORAZEPAM) 1 Mg Tab, 1 MG PO Q4-6H PRN for nausea/insomnia for 7 Days, #20 TAB 1 Refill Prov:TOREY LAZARO MD 06/16/18 Oxycodone Hcl (OXYCONTIN) 10 Mg Tab.er.12h, 5 MG PO BID for 7 Days, #14 TAB 0 Refills Prov:TOREY LAZARO MD 06/16/18 Ondansetron (ZOFRAN ODT) 4 Mg Tab.rapdis, 1 TAB PO Q6H PRN for NAUSEA, #20 TAB.MOOSE 3 Refills Prov:TOREY LAZARO MD 06/16/18 Discontinued Reported Medications Vancomycin Hcl (VANCOMYCIN HCL) 125 Mg Capsule, 125 MG PO QID, CAPSULE 06/14/18 Discontinued Scripts Lidocaine (Lidocaine) 5 % Adh..patch, 1 PATCH TOP DAILY PRN for PAIN, #20 PATCH 1 Refill Prov:TOREY LAZARO MD 06/16/18 Oxycodone Hcl (OXYCODONE HCL) 5 Mg Tablet, 5-10 MG PO Q4H PRN for PAIN for 7 Days, #30 TAB 0 Refills Prov:TOREY LAZARO MD 06/16/18 Sennosides/Docusate Sodium (SENNA-TIME S TABLET) 1 Each Tablet, 1 EACH PO BID for 30 Days, #60 TAB 1 Refill Prov:TOREY LAZARO MD 06/16/18 Prochlorperazine Maleate (Compazine) 10 Mg Tablet, 1 TAB PO Q6H PRN for NAUSEA, #20 TAB 1 Refill Prov:TOREY LAZARO MD 06/16/18 Allergies: Coded Allergies: morphine (Verified Allergy, Unknown, SWELLING AND ITCHING, 06/13/18) metronidazole (Verified Adverse Reaction, Intermediate, 06/13/18) Patient History: FH: CHF (congestive heart failure) FATHER FH: hypertension FATHER Hx Smoking: Yes Smoking Status: Former Smoker Caffeine Intake: Tea Caffeine/Cups Per Day: 2/WEEK Hx Alcohol Use: Yes Hx Substance Use Disorder: No Social Drug Use: Never Review of Systems Gastrointestinal: Diarrhea, Hematochezia, Abdominal Pain Exam Vital Signs Vital Signs Date Time Temp Pulse Resp B/P (MAP) Pulse Ox O2 Delivery O2 Flow Rate FiO2 12/13/18 16:02 92 12/13/18 16:02 Room Air 12/13/18 15:50 98.6 80 16 121/82 (95) General Appearance: Alert, Awake, No Acute Distress, Afebrile Neuro: No Gross deficits ENT: Normal Cardiovascular: Normal Rhythm & Peripheral Pulses Respiratory: No Respiratory Distress GI: Other (mild tenderness to palpation, no peritoneal signs) Musculoskeletal: No Weakness/Pain Extremities: Soft and Non Tender, Warm, Pulses, Perfused Medical Decision Making Data Points Result Diagram: 12/13/18 1230 12/13/18 1230 Assessment and Plan Problems: (1) Colitis Status: Acute Assessment & Plan: Secondary to immunotherapy. ER discussed with [facility] oncology and recommend 1mg/kg steroid therapy with follow up after discharge. Will need 5-6 weeks high dose steroid and taper. Begin 80mg prednisone daily. (2) Metastatic malignant melanoma Assessment & Plan: On immunotherapy since Jul 2018, has completed the 2 dose regimen and now on single dose maintenance. Venous Thromboembolism Antithrombotics Is Pt On Any Antithrombotics?: Yes Exam Sepsis Risk: No Definite Risk JHAVERI ALIZE BELLE DO Dec 13, 2018 18:10
[2018-12-13 18:58] VITALS: BP 110/63
[2018-12-13] MEDS ORDERED: oxyCODONE HCL 5 MG CAP PO PRN (20:00)
[2018-12-13] MEDS ORDERED: TRIA15CR40 (20:22)
[2018-12-13] MEDS ORDERED: FENT-17 TOP (20:22)
[2018-12-13] MEDS ORDERED: PRED20TA6 PO (20:22)
[2018-12-13] MEDS ORDERED: LORA-630 PO (20:22)
[2018-12-13] MEDS ORDERED: FENT-15 TOP (20:22)
[2018-12-13] MEDS ORDERED: LORazepam 1 MG TAB PO SCH (21:00)
[2018-12-13] MEDS: LOPERAMIDE HCL 2 MG CAP PO PRN (23:11)
[2018-12-13 23:12] VITALS: BP 122/69
[2018-12-14 07:07] VITALS: BP 123/76
[2018-12-14] MEDS ORDERED: POTASSIUM CHL 20 MEQ TABCR PO ONE (08:00)
[2018-12-14] MEDS ORDERED: ENOXAPARIN 40 MG/0.4ML SYR SC SCH (09:00)
[2018-12-14] MEDS ORDERED: predniSONE 20 MG TAB PO SCH (09:00)
[2018-12-14] MEDS: LOPERAMIDE HCL 2 MG CAP PO PRN (09:13)
[2018-12-14] MEDS ORDERED: PRED20TA6 PO (09:31)
--- NOTE | 2018-12-14 09:34 | Hospitalist Depart ---
Discharge Summary Reason for Hosp/Final Diag: (1) Colitis Status: Acute Hospital Course & Plan: Secondary to immunotherapy. She has been placed on high dose prednisone and will follow up with her oncologist for tapering. (2) Metastatic malignant melanoma Hospital Course & Plan: On immunotherapy since Jul 2018, has completed the 2 dose regimen and now on single dose maintenance. Departure Latest Vital Signs Laboratory Tests Test 12/13/18 12:30 12/13/18 12:36 White Blood Count 8.5 k/uL Red Blood Count 4.71 M/uL Hemoglobin 12.6 g/dL Hematocrit 37.3 % Mean Corpuscular Volume 79.1 fL Mean Corpuscular Hemoglobin 26.8 pg Mean Corpuscular Hemoglobin Concent 33.9 g/dL Red Cell Distribution Width 17.4 % Platelet Count 238 K/uL Mean Platelet Volume 6.7 fL Neutrophils (%) (Auto) % Lymphocytes (%) (Auto) % Monocytes (%) (Auto) % Eosinophils (%) (Auto) % Basophils (%) (Auto) % Nucleated RBC Relative Count (auto) /100WBC Neutrophils # (Auto) K/uL Lymphocytes # (Auto) K/uL Monocytes # (Auto) K/uL Eosinophils # (Auto) K/uL Basophils # (Auto) K/uL Nucleated RBC Absolute Count (auto) K/uL Neutrophils % (Manual) 44 % Band Neutrophils % 25 % Lymphocytes % (Manual) 15 % Monocytes % (Manual) 10 % Eosinophils % (Manual) 0 % Basophils % (Manual) 0 % Metamyelocytes % 6 % Peripheral Blood Smear Yes Y/N Sodium Level 134 mmol/L Potassium Level 3.4 mmol/L Chloride Level 101 mmol/L Carbon Dioxide Level 26 mmol/L Blood Urea Nitrogen 8 mg/dl Creatinine 0.80 mg/dl Glomerular Filtration Rate Calc > 60.0 Random Glucose 105 mg/dl Calcium Level 8.2 mg/dl Total Bilirubin 0.8 mg/dl Aspartate Amino Transf (AST/SGOT) 15 U/L Alanine Aminotransferase (ALT/SGPT) 18 U/L Alkaline Phosphatase 112 U/L Total Protein 5.9 g/dl Albumin 2.9 g/dl Amylase Level 34 U/L Lipase 11 U/L Helicobacter pylori IgG Antibody Negative Influenza Virus Type A (PCR) Negative Influenza Virus Type B (PCR) Negative Current Medications Medications (Trade) Dose Ordered Sig/Rick Route PRN Reason Start Time Stop Time Status Last Admin Dose Admin Sodium Chloride 1,000 ml @ 0 mls/hr Q0M ONCE IV 12/13/18 12:30 12/13/18 12:31 DC 12/13/18 12:41 Iopamidol 100 ml @ As Directed STK-MED ONCE .ROUTE 12/13/18 12:52 12/13/18 12:53 DC Fentanyl Citrate (fentaNYL CITR(*) 100 MCG/2 ML AMP) 50 mcg ONCE ONCE IVP 12/13/18 12:55 12/13/18 12:56 DC 12/13/18 13:00 Methylprednisolone Sodium Succinate (Solu-MEDROL SUCC(*) 125 MG/2 ML VIAL (OR EQV)) 80 mg ONCE ONCE IVP 12/13/18 15:10 12/13/18 15:11 DC 12/13/18 15:24 Fentanyl Citrate (fentaNYL CITR(*) 100 MCG/2 ML AMP) 50 mcg ONCE ONCE IVP 12/13/18 15:30 12/13/18 15:31 DC 12/13/18 15:32 Sodium Chloride 1,000 ml @ 100 mls/hr Q10H ONCE IV 12/13/18 16:55 12/14/18 02:54 DC 12/13/18 17:11 Ondansetron HCl (Zofran(*) 4 Mg/ 2 ml(Or Equiv)) 4 mg Q4H PRN IVP NAUSEA/VOMITING 12/13/18 16:55 01/12/19 16:54 Influenza Virus Vaccine Quadrival (Flu Vac (4067-1549 Formula)) 0.5 ml ONCE ONCE IM ONLY 12/16/18 09:00 12/16/18 09:01 Enoxaparin Sodium (Lovenox 40 Mg/ 0.4 ml Syr (Or Equiv)) 40 mg Q24H SC 12/14/18 09:00 12/14/18 09:00 DC Prednisone (predniSONE (*) 20 MG TAB) 80 mg QDAY PO 12/14/18 09:00 01/13/19 08:59 12/14/18 08:08 Loperamide HCl (Imodium 2 Mg Cap (Or Equiv)) 2 mg PRN PRN PO DIARRHEA 12/13/18 16:55 01/12/19 16:54 12/14/18 09:13 Oxycodone HCl (Oxy Ir (*) (Or Equiv)) 10 mg Q4H PRN PO PAIN 12/13/18 20:00 12/27/18 19:59 12/14/18 01:21 Lorazepam (Ativan(*) 1 Mg Tab (Or Equiv)) 1 mg QHS PO 12/13/18 21:00 12/27/18 20:59 12/13/18 20:41 Potassium Chloride (Klor-Con M20 (*) 20 Meq Tabcr (Or Equiv)) 20 meq ONCE ONCE PO 12/14/18 08:00 12/14/18 08:02 DC 12/14/18 08:08 Weight (Pounds): 176 Result Diagram: 12/13/18 1230 12/13/18 1230 Condition: Improved Discharge: Home, Self Care Discharge Instructions Home Meds Active Scripts Prednisone (PREDNISONE) 20 Mg Tablet, 4 TAB PO QDAY, #56 TAB Prov:ZEESHAN PRUITT DO 12/14/18 Oxycodone Hcl (OXYCONTIN) 10 Mg Tab.er.12h, 5 MG PO BID for 7 Days, #14 TAB 0 Refills Prov:TOREY LAZARO MD 06/16/18 Reported Medications Lorazepam (LORAZEPAM) 0.5 Mg Tablet, 1 TAB PO BID FOR CHEMOTHERAPY INDUCED NAUSEA/VOMITING 12/13/18 Triamcinolone Acetonide 0.1% Cr 15 Gm Tube (TRIAMCINOLONE ACETONIDE 0.1% CREAM) 15 Gm Cream..g. APPLY BID TO AA FOR SKIN INFLAMMATION 12/13/18 Discontinued Reported Medications Prednisone (PREDNISONE) 20 Mg Tablet, 70 MG PO QDAY FOR HEPATITIS 12/13/18 Fentanyl 25 Mcg Patch (FENTANYL 25 MCG PATCH) 1 Each Patch.td72, 25 MCG TOP Q72H FOR CANCER RELATED PAIN 12/13/18 Fentanyl 12 Mcg Patch (FENTANYL 12 MCG PATCH) 1 Each Patch.td72, 12.5 MCG TOP Q72H FOR CANCER RELATED PAIN 12/13/18 Vancomycin Hcl (VANCOMYCIN HCL) 125 Mg Capsule, 125 MG PO QID, CAPSULE 06/14/18 Discontinued Scripts Lidocaine (Lidocaine) 5 % Adh..patch, 1 PATCH TOP DAILY PRN for PAIN, #20 PATCH 1 Refill Prov:TOREY LAZARO MD 06/16/18 Oxycodone Hcl (OXYCODONE HCL) 5 Mg Tablet, 5-10 MG PO Q4H PRN for PAIN for 7 Days, #30 TAB 0 Refills Prov:TOREY LAZARO MD 06/16/18 Sennosides/Docusate Sodium (SENNA-TIME S TABLET) 1 Each Tablet, 1 EACH PO BID for 30 Days, #60 TAB 1 Refill Prov:TOREY LAZARO MD 06/16/18 Lorazepam (LORAZEPAM) 1 Mg Tab, 1 MG PO Q4-6H PRN for nausea/insomnia for 7 Days, #20 TAB 1 Refill Prov:TOREY LAZARO MD 06/16/18 Prochlorperazine Maleate (Compazine) 10 Mg Tablet, 1 TAB PO Q6H PRN for NAUSEA, #20 TAB 1 Refill Prov:TOREY LAZARO MD 06/16/18 Ondansetron (ZOFRAN ODT) 4 Mg Tab.rapdis, 1 TAB PO Q6H PRN for NAUSEA, #20 TAB.MOOSE 3 Refills Prov:TOREY LAZARO MD 06/16/18 Diet: Regular Activity: As Tolerated Venous Thromboembolism Antithrombotics Is Pt On Any Antithrombotics?: Yes ZEESHAN PRUITT DO Dec 14, 2018 09:33
[2018-12-14] MEDS ORDERED: OXYC5CAP21 PO (09:38)
[2018-12-16] MEDS ORDERED: INFLUENZA VIRUS VAC 0.5ML SYR IM ONLY ONE (09:00)
== END 2018-12-14 09:31 | disposition home or self-care (01) ==
LOC: ER 12:04 → INTOOBSV 15:14 → MED 15:14
PROVIDERS: ADMIT Internal Medicine; ATTEND Internal Medicine
DX: K52.9 Noninfective gastroenteritis and colitis, unspecified (principal); C79.2 Secondary malignant neoplasm of skin
CPT/HCPCS: 36415; 71046; 74177; 82150; 83690; 85025; 86677; 87040; 87502; 96361; 96374; 96375; 96376; 99284; G0378; J2930; J3010; J7030; J7512; Q9967; 82040; 82247; 82310; 82374; 82435; 82565; 82947; 84075; 84132; 84155; 84295; 84450; 84460; 84520

== ENCOUNTER → 2018-12-24 | Outpatient (CLI) | payer OTHER ==
[~2018-12-24] MED LIST changes: +FENT-15 TOP; +FENT-17 TOP; +LORA-630 PO; +OXYC5CAP21 PO; +PRED20TA6 PO; +TRIA15CR40
[2018-12-24 09:48] VITALS: BP 106/69
[2018-12-24 09:52] LABS: PLATELET COUNT, AUTOMATED 428 K/uL (150-450)
--- NOTE | 2018-12-25 11:28 | NUR ---
ORDER RECEIVED FOR [address] HUMPHREY. PT STATES SHE SPOKE WITH DR. HUMPHREY' OFFICE LAST NIGHT AND DOES NOT FEEL LIKE SHE NEEDS TO COME IN TODAY FOR HYDRATION. PT STATES HAS BEEN DRINKING GATORADE LAST NIGHT AND TODAY. PT OPTING TO CALL TOMORROW OR WHEN SHE FEELS LIKE SHE DESIRES THE HYDRATION, IF NECESSARY, LATER THIS WEEK. ------ Paulina GUERRERO RN
== END ==
LOC: SPU 08:28
PROVIDERS: ATTEND Internal Medicine Medical Oncology
DX: C79.9 Secondary malignant neoplasm of unspecified site (principal)
CPT/HCPCS: 36415; 82040; 82247; 82310; 82374; 82435; 82565; 82947; 84075; 84132; 84155; 84295; 84443; 84450; 84460; 84520; 85025

== ENCOUNTER → 2019-02-10 | Outpatient (CLI) | payer OTHER ==
[~2019-02-10] MED LIST changes: +GADOBENATE 529MG/1ML 15ML VIAL IVP ONE
--- NOTE | 2019-02-10 15:23 | RADIOLOGY IMAGING REPORT ---
FACILITY: [facility] PATIENT NAME: Anny Yeboah : 1970 MR: [id number] V: [id number] EXAM DATE: [id number] ORDERING PHYSICIAN: LEANNE MULLINS [place]CHNOLOGIST[place] [facility] [place] Anny Yeboah : 1970 Visit/Account:[id number] Date of Sevice: 02/10/2019 EXAMINATION: MRI Brain without intravenous contrast MRI Brain with intravenous contrast HISTORY: Brain metastasis. COMPARISON: 11/06/2018. 09/02/2018. 09/16/2018. TECHNIQUE: Multi-planar, multi-sequence brain MRI was performed before and after IV gadolinium. CONTRAST: 15 mL of IV MultiHance FINDINGS: Brain volume: Normal. Sagittal midline structures: Negative. Ventricles: Negative. Acute ischemic changes: None. Hemorrhage: Stable hemosiderin staining in the posterior medial left frontal lobe. No acute intracra nial hemorrhage. Masses / edema: None. Enhancement: Negative. Beyer-white: Negative. White matter: A few T2/FLAIR hyperintensities in the deep white matter bilaterally. Vessels: Negative. Extra-axial: Negative. Calvarium / scalp: Negative. Skull base: Negative. Visualized sinuses / orbits: Negative. Visualized upper neck: Negative. IMPRESSION: 1. No evidence of metastasis. Small enhancing lesions described on 09/16/2018 are not definitely seen on today's exam, possibly secondary to differences in postcontrast technique. 2. Stable minimal chronic white matter disease, nonspecific but most likely representing chronic micr ovascular ischemia. Report Dictated By: Salomón Leon MD at 02/10/2019 3:09 PM Report E-Signed By: Salomón Leon MD at 02/10/2019 3:18 PM WSN:[id number]
== END ==
LOC: MRI 01-27 00:35
PROVIDERS: ATTEND Nurse Practitioner
DX: C79.31 Secondary malignant neoplasm of brain (principal)
CPT/HCPCS: 70553; A9577